=== PATIENT | male | born 2000 | race Caucasian/White ===

== ENCOUNTER 2019-01-07 21:33 | Emergency (ER) | payer BC ==
[~2019-01-07] VITALS: Ht 188 cm; Wt 141.1 kg
[2019-01-07] MEDS ORDERED: ASPIRIN 325 MG TABLET PO ONE (22:15)
[2019-01-07 22:48] LABS: BASO # 0.1 x10^3/uL (0.0-0.2); BASO % 1 % (0-3); EOS # 0.3 x10^3/uL (0.0-0.7); EOS % 2 % (0-3); HEMATOCRIT 48.9 % (39.0-53.0); HEMOGLOBIN 16.1 g/dL (13.0-17.5); LYMPH # 2.8 x10^3/uL (1.0-4.8); LYMPH % 23 % (24-48); MEAN CORPUSCULAR HEMOGLOBIN 28 pg (25-35); MEAN CORPUSCULAR HGB CONC 33 g/dL (31-37); MEAN CORPUSCULAR VOLUME 86 fL (79-100); MONO # 0.9 x10^3/uL (0.0-1.1); MONO % 7 % (0-9); NEUT # 8.2 x10^3uL (1.8-7.7); NEUT % 67 % (31-73); PLATELET COUNT 272 x10^3/uL (140-400); RED BLOOD COUNT 5.67 x10^6/uL (4.30-5.70); RED CELL DISTRIBUTION WIDTH 13.5 % (11.5-14.5); WHITE BLOOD COUNT 12.3 x10^3/uL (4.0-11.0)
[2019-01-07 22:57] LABS: CALCIUM 9.6 mg/dL (8.5-10.1); CREATININE 0.9 mg/dL (0.7-1.3); GFR 107.6; POTASSIUM 3.8 mmol/L (3.5-5.1)
[2019-01-07 23:22] LABS: BARBITURATES NEG (NEG); BENZODIAZEPINES NEG (NEG); CANNABINOIDS NEG (NEG); COCAINE NEG (NEG); METHADONE NEG (NEG); OPIATES NEG (NEG); PHENCYCLIDINE NEG (NEG)
[2019-01-07 23:23] LABS: AMPHETAMINE/METHAMPHETAMINE NEG (NEG)
--- NOTE | 2019-01-08 00:55 | PHYS DOC ---
Past Medical History Past Medical History: Other Additional Past Medical Histor: LAINA Past Surgical History: Other Additional Past Surgical Histo: NASAL SX Alcohol Use: Occasionally Drug Use: None Adult General Chief Complaint Chief Complaint: CHEST PAIN HPI HPI Patient is a 18 year old male who presents with 4/10 left sided chest pain intermittently since Thursday which is roughly 4 days ago. Patient denies anything exacerbating or relieving the pain. He is also complaining of pain to the left forearm. He states the pain begins mid forearm to the left hand. He is denying the pain radiating from the chest. Denies any shortness of breath. Denies any fever coughing or congestion. Denies anyone in his family dying before the age of 50 suddenly. Review of Systems Review of Systems Constitutional: Denies fever or chills [] Eyes: Denies change in visual acuity, redness, or eye pain [] HENT: Denies nasal congestion or sore throat [] Respiratory: Denies cough or shortness of breath [] Cardiovascular: Reports left sided chest pain GI: Denies abdominal pain, nausea, vomiting, bloody stools or diarrhea [] : Denies dysuria or hematuria [] Musculoskeletal: Denies back pain or joint pain [] Integument: Denies rash or skin lesions [] Neurologic: Denies headache, focal weakness or sensory changes [] All other systems were reviewed and found to be within normal limits, except as documented in this note. Current Medications Current Medications Current Medications Medications (Trade) Dose Ordered Sig/Glenna Start Time Stop Time Status Last Admin Dose Admin Aspirin (Giulia Aspirin) 325 mg 1X ONCE 01/07/19 22:15 01/07/19 22:16 DC 01/07/19 23:41 325 MG Allergies Allergies Allergies Coded Allergies Type Severity Reaction Last Updated Verified No Known Drug Allergies 01/07/19 No Physical Exam Physical Exam Constitutional: Well developed, well nourished, no acute distress, non-toxic appearance. [] HENT: Normocephalic, atraumatic, bilateral external ears normal, oropharynx moist, no oral exudates, nose normal. [] Eyes: PERRLA, EOMI, conjunctiva normal, no discharge. [] Neck: Normal range of motion, no tenderness, supple, no stridor. [] Cardiovascular:Heart rate regular rhythm, no murmur [] Lungs & Thorax: Bilateral breath sounds clear to auscultation [] Abdomen: Bowel sounds normal, soft, no tenderness, no masses, no pulsatile masses. [] Skin: Warm, dry, no erythema, no rash. [] Back: No tenderness, no CVA tenderness. [] Extremities: No tenderness, no cyanosis, no clubbing, ROM intact, no edema. [] Neurologic: Alert and oriented X 3, normal motor function, normal sensory function, no focal deficits noted. [] Psychologic: Affect normal, judgement normal, mood normal. [] Current Patient Data Vital Signs Vital Signs Date Time Temp Pulse Resp B/P (MAP) Pulse Ox O2 Delivery O2 Flow Rate FiO2 01/07/19 23:37 78 18 131/59 (83) 95 Room Air 01/07/19 21:40 97.5 97.5 Lab Values Laboratory Tests Test 01/07/19 22:35 01/07/19 23:03 White Blood Count 12.3 x10^3/uL (4.0-11.0) H Red Blood Count 5.67 x10^6/uL (4.30-5.70) Hemoglobin 16.1 g/dL (13.0-17.5) Hematocrit 48.9 % (39.0-53.0) Mean Corpuscular Volume 86 fL (79-100) Mean Corpuscular Hemoglobin 28 pg (25-35) Mean Corpuscular Hemoglobin Concent 33 g/dL (31-37) Red Cell Distribution Width 13.5 % (11.5-14.5) Platelet Count 272 x10^3/uL (140-400) Neutrophils (%) (Auto) 67 % (31-73) Lymphocytes (%) (Auto) 23 % (24-48) L Monocytes (%) (Auto) 7 % (0-9) Eosinophils (%) (Auto) 2 % (0-3) Basophils (%) (Auto) 1 % (0-3) Neutrophils # (Auto) 8.2 x10^3uL (1.8-7.7) H Lymphocytes # (Auto) 2.8 x10^3/uL (1.0-4.8) Monocytes # (Auto) 0.9 x10^3/uL (0.0-1.1) Eosinophils # (Auto) 0.3 x10^3/uL (0.0-0.7) Basophils # (Auto) 0.1 x10^3/uL (0.0-0.2) D-Dimer (Marysol) < 0.27 ug/mlFEU Sodium Level 143 mmol/L (136-145) Potassium Level 3.8 mmol/L (3.5-5.1) Chloride Level 102 mmol/L (98-107) Carbon Dioxide Level 31 mmol/L (21-32) Anion Gap 10 (6-14) Blood Urea Nitrogen 20 mg/dL (8-26) Creatinine 0.9 mg/dL (0.7-1.3) Estimated GFR (Cockcroft-Gault) 107.6 Glucose Level 106 mg/dL (70-99) H Calcium Level 9.6 mg/dL (8.5-10.1) Troponin I Quantitative < 0.017 ng/mL (0.000-0.055) TB-Lsg-A-Type Natriuretic Peptide 33 pg/mL (0-124) Urine Opiates Screen Neg (NEG) Urine Methadone Screen Neg (NEG) Urine Barbiturates Neg (NEG) Urine Phencyclidine Screen Neg (NEG) Urine Amphetamine/Methamphetamine Neg (NEG) Urine Benzodiazepines Screen Neg (NEG) Urine Cocaine Screen Neg (NEG) Urine Cannabinoids Screen Neg (NEG) Urine Ethyl Alcohol Neg (NEG) Laboratory Tests 01/07/19 22:35 Laboratory Tests 01/07/19 22:35 EKG EKG Interpreted by Dr. Cadet sinus rhythm heart rate 83no STEMI[] Radiology/Procedures Radiology/Procedures [] Course & Med Decision Making Course & Med Decision Making Pertinent Labs and Imaging studies reviewed. (See chart for details) This is a 18-year-old male patient presenting to the ED today with left-sided chest pain. Cardiac workup including D dimer is negative. Patient has a PCP for follow-up. Also provided alternative medicine practitioner. Follow-up next week. OTC pain relievers. Dragon Disclaimer Dragon Disclaimer This electronic medical record was generated, in whole or in part, using a voice recognition dictation system. Departure Departure Impression: Primary Impression: Chest pain Disposition: HOME, SELF-CARE Condition: STABLE Referrals: JEAN CLAUDE PABON APRN (PCP) Follow-up with your doctor next week MYRA LOCKHART MD follow up next week Patient Instructions: Chest Pain (Nonspecific), [id number] Additional Instructions: You were evaluated in the emergency room for chest pain. We could not find any acute source for your pain. Follow-up with alternative medicine practitioner doctor provided next week as well as a primary care doctor. Problem Qualifiers Primary Impression: Chest pain Chest pain type: unspecified Qualified Codes: R07.9 - Chest pain, unspecified NICCI NATH APRN Jan 08, 2019 00:55
[2019-01-08 01:07] VITALS: BP 127/61
--- NOTE | 2019-01-08 15:06 | EKG ---
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
--- NOTE | 2019-01-08 16:53 | RAD ---
AP chest 01/07/2018 CLINICAL INDICATION: Shortness of breath. COMPARISON: None. FINDINGS: Cardiac and mediastinal silhouettes are unremarkable. No pleural effusion, pneumothorax or focal consolidation. IMPRESSION: No acute cardiopulmonary abnormality. Electronically signed by: Skyler Crisostomo MD (01/08/2019 4:50 PM) [facility] [place]
== END 2019-01-08 01:35 | disposition home or self-care (01) ==
LOC: ER 21:33
DX: R07.89 Other chest pain (principal); M79.632 Pain in left forearm; Z79.82 Long term (current) use of aspirin
CPT/HCPCS: 36415; 71045; 80048; 80307; 83880; 84484; 85025; 85379; 93005; 99284-25

== ENCOUNTER 2019-01-20 22:18 | Emergency (ER) | payer BC ==
[~2019-01-20] VITALS: Ht 190.5 cm; Wt 135.2 kg
--- NOTE | 2019-01-20 22:48 | PHYS DOC ---
Past Medical History Past Medical History: Other Additional Past Medical Histor: LAINA Past Surgical History: Other Additional Past Surgical Histo: NASAL SX Alcohol Use: Occasionally Drug Use: None Adult General Chief Complaint Chief Complaint: CONSTIPATION HPI HPI Patient is 18 yo male who presents with Grandmother with chief complaint of 2 days of right sided abdominal pain. Patient reports he has been constipated for the past couple of days and "feels like his intestines are full". He reports his last BM was this morning at 0700 when he had a small, watery BM. He reports he has not tried to pass gas since this morning. He had 2 pills of exlax last night and another 2 pills this afternoon. He also had 2 ibuprofen and 2 excedrin for the pain this afternoon. Currently patient rates his pain as 4 or 5 out of 10. Magali states that she brought him to the ED because she was worried about appendicitis. Patient has PMH of Asberger's disease and panic attacks and has recently started zoloft, which is his only prescription medication. Patient denies cigarette or drug use. he reports occasional alcohol use. After grandma stepped out patient confirmed he is sexually active with one female partner. He reports having only vaginal sex, not wearing condoms, but denies dysuria or penile dc. He denies any abdominal surgeries, fever, nausea, or vomiting. Review of Systems Review of Systems Constitutional: Denies fever or chills [] Eyes: Denies change in visual acuity, redness, or eye pain [] HENT: Denies nasal congestion or sore throat [] Respiratory: Denies cough or shortness of breath [] Cardiovascular: No additional information not addressed in HPI [] GI: Admits abdominal pain, nausea, vomiting, bloody stools or diarrhea, admits to 2 days of constipation. : Denies dysuria or hematuria [] Musculoskeletal: Denies back pain or joint pain [] Integument: Denies rash or skin lesions [] Neurologic: Denies headache, focal weakness or sensory changes [] Endocrine: Denies polyuria or polydipsia [] All other systems were reviewed and found to be within normal limits, except as documented in this note. Current Medications Current Medications Current Medications Medications (Trade) Dose Ordered Sig/Glenna Start Time Stop Time Status Last Admin Dose Admin Acetaminophen (Tylenol) 1,000 mg 1X ONCE 01/20/19 23:15 01/20/19 23:16 DC 01/20/19 23:37 1,000 MG Lactulose (Lactulose) 20 gm 1X ONCE 01/20/19 23:15 01/20/19 23:16 DC 01/20/19 23:38 20 GM Magnesium Citrate (Citroma) 296 ml 1X ONCE 01/21/19 00:45 01/21/19 00:46 DC 01/21/19 00:45 296 ML Allergies Allergies Allergies Coded Allergies Type Severity Reaction Last Updated Verified No Known Drug Allergies 01/07/19 No Physical Exam Physical Exam Constitutional: Well developed, well nourished, obese, no acute distress, non- toxic appearance. [] HENT: Normocephalic, atraumatic Neck: Normal range of motion, Cardiovascular:Heart rate regular rhythm, no murmur [] Lungs & Thorax: Bilateral breath sounds clear to auscultation [] Abdomen: Bowel sounds normal, soft, no tenderness to moderate pressure, no masses, no alcazar's sign. No Rovsing sign. No tenderness over McBurney's point. Skin: Warm, dry, no erythema, no rash. [] Neurologic: Alert and oriented X 3, normal motor function, normal sensory function, no focal deficits noted. [] Psychologic: Affect normal, judgement normal, mood normal. [] Current Patient Data Vital Signs Vital Signs Date Time Temp Pulse Resp B/P (MAP) Pulse Ox O2 Delivery O2 Flow Rate FiO2 01/20/19 22:25 97.3 69 20 151/83 (105) 95 Room Air 97.3 Lab Values Laboratory Tests Test 01/21/19 00:01 01/21/19 00:20 White Blood Count 9.9 x10^3/uL (4.0-11.0) Red Blood Count 5.33 x10^6/uL (4.30-5.70) Hemoglobin 15.1 g/dL (13.0-17.5) Hematocrit 46.0 % (39.0-53.0) Mean Corpuscular Volume 86 fL (79-100) Mean Corpuscular Hemoglobin 28 pg (25-35) Mean Corpuscular Hemoglobin Concent 33 g/dL (31-37) Red Cell Distribution Width 13.5 % (11.5-14.5) Platelet Count 293 x10^3/uL (140-400) Neutrophils (%) (Auto) 69 % (31-73) Lymphocytes (%) (Auto) 18 % (24-48) L Monocytes (%) (Auto) 11 % (0-9) H Eosinophils (%) (Auto) 2 % (0-3) Basophils (%) (Auto) 1 % (0-3) Neutrophils # (Auto) 6.8 x10^3uL (1.8-7.7) Lymphocytes # (Auto) 1.8 x10^3/uL (1.0-4.8) Monocytes # (Auto) 1.0 x10^3/uL (0.0-1.1) Eosinophils # (Auto) 0.2 x10^3/uL (0.0-0.7) Basophils # (Auto) 0.1 x10^3/uL (0.0-0.2) Sodium Level 141 mmol/L (136-145) Potassium Level 3.7 mmol/L (3.5-5.1) Chloride Level 103 mmol/L (98-107) Carbon Dioxide Level 29 mmol/L (21-32) Anion Gap 9 (6-14) Blood Urea Nitrogen 16 mg/dL (8-26) Creatinine 0.9 mg/dL (0.7-1.3) Estimated GFR (Cockcroft-Gault) 107.6 BUN/Creatinine Ratio 18 (6-20) Glucose Level 113 mg/dL (70-99) H Calcium Level 9.7 mg/dL (8.5-10.1) Total Bilirubin 0.3 mg/dL (0.2-1.0) Aspartate Amino Transferase (AST) 20 U/L (15-37) Alanine Aminotransferase (ALT) 34 U/L (16-63) Alkaline Phosphatase 85 U/L (46-116) Total Protein 8.0 g/dL (6.4-8.2) Albumin 4.1 g/dL (3.4-5.0) Albumin/Globulin Ratio 1.1 (1.0-1.7) Laboratory Tests 01/21/19 00:01 Laboratory Tests 01/21/19 00:20 EKG EKG [] Radiology/Procedures Radiology/Procedures [] Course & Med Decision Making Course & Med Decision Making Patient is 18 yo male who presents with grandomther with complaint of 2 days of abdominal pain and constipation. Grandmother reports she is worried about appendicitis in the patient. Patient reports his last bowel movement was this morning around 0700 but has not had a "normal" BM for 2 days. On physical exam he is resting comfortably, vitals WNL, with soft, nontender, nonperitoneal abdomen. Grandmother reports that patient has Asberger's disease which causes him to have a high pain tolerance. Discussed with grandma that likely patient's symptoms are d/t constipation, and that in this case the benefits of CT likely do not outweigh the radiation present with CT AT THIS TIME. CBC WNL. CMP reveals. Patient prescribed lactulose for constipation relief and tylenol for pain relief. Advised patient and grandmother that likely his symptoms are d/t constipation but that patient should return to ED if nausea, vomiting, fever, or abdominal pain increase IN NEXT 12-24 HOURS. Advised patient to continue EXLAX, TAKE LACTULOSE and to increase water intake. Patient and grandmother voiced understanding and agreement with the plan. Dragon Disclaimer Dragon Disclaimer This electronic medical record was generated, in whole or in part, using a voice recognition dictation system. Departure Departure Impression: Primary Impression: Constipation Disposition: 01 HOME, SELF-CARE Condition: STABLE Referrals: JEAN CLAUDE PABON APRN (PCP) Scripts Lactulose (LACTULOSE) 20 Gm/30 Ml Solution 20 GM PO BID, #1 [facility] [place] Prov: GAGE ROSARIO MD 01/20/19 GAGE ROSARIO MD Jan 20, 2019 22:48
[2019-01-20] MEDS ORDERED: ACETAMINOPHEN 500 MG TABLET PO ONE (23:15)
[2019-01-20] MEDS ORDERED: LACTULOSE 20 GM/30 ML SOLUTION. PO ONE (23:15)
[2019-01-20] MEDS ORDERED: LACT20SO PO (23:25)
[2019-01-21 00:17] LABS: BASO # 0.1 x10^3/uL (0.0-0.2); BASO % 1 % (0-3); EOS # 0.2 x10^3/uL (0.0-0.7); EOS % 2 % (0-3); HEMOGLOBIN 15.1 g/dL (13.0-17.5); LYMPH # 1.8 x10^3/uL (1.0-4.8); LYMPH % 18 % (24-48); MEAN CORPUSCULAR HEMOGLOBIN 28 pg (25-35); MEAN CORPUSCULAR HGB CONC 33 g/dL (31-37); MEAN CORPUSCULAR VOLUME 86 fL (79-100); MONO % 11 % (0-9); NEUT # 6.8 x10^3uL (1.8-7.7); NEUT % 69 % (31-73); PLATELET COUNT 293 x10^3/uL (140-400); RED BLOOD COUNT 5.33 x10^6/uL (4.30-5.70); RED CELL DISTRIBUTION WIDTH 13.5 % (11.5-14.5); WHITE BLOOD COUNT 9.9 x10^3/uL (4.0-11.0)
[2019-01-21] MEDS ORDERED: MAGNESIUM CITRATE 296 ML SOLUTION. PO ONE (00:45)
[2019-01-21 00:54] LABS: CALCIUM 9.7 mg/dL (8.5-10.1); CREATININE 0.9 mg/dL (0.7-1.3); GFR 107.6; POTASSIUM 3.7 mmol/L (3.5-5.1)
[2019-01-21 01:00] VITALS: BP 137/63
[2019-01-21 01:00] LABS: ALBUMIN 4.1 g/dL (3.4-5.0); ALBUMIN/GLOBULIN RATIO 1.1 (1.0-1.7); TOTAL BILIRUBIN 0.3 mg/dL (0.2-1.0)
== END 2019-01-21 01:25 | disposition home or self-care (01) ==
LOC: ER 22:18
DX: K59.00 Constipation, unspecified (principal); R10.9 Unspecified abdominal pain; R11.2 Nausea with vomiting, unspecified; R19.7 Diarrhea, unspecified; K92.1 Melena
CPT/HCPCS: 36415; 80053; 85025; 99284

== ENCOUNTER → 2019-06-29 | Day surgery (SDC) | payer BC ==
[~2019-06-29] MED LIST: IV RINGERS,LACTATED 1000ML 1,000 ML IV SCH; LACT20SO PO; PROPOFOL 40 ML IV ONE; SERT50TA PO
[2019-06-29 09:59] VITALS: BP 135/81
--- NOTE | 2019-06-30 14:06 | PATHOLOGY ---
[facility] Accession Number: [id number] . 01 Material submitted: . PART A: duodenum - DUODENAL BX'S PART B: colon - RANDOM COLON BX'S . 01 Clinical history: . Abdominal pain, diarrhea A: R/O celiac . 02 Diagnosis: A. Duodenal biopsies: - No significant pathologic abnormalities. . B. Colonic mucosa, random colon biopsies: - No significant pathologic abnormalities with few hyperplastic mucosal-associated lymphoid aggregates. . (JPM:mml; 06/30/2019) [facility]/06/30/2019 . 02 Comment: Sections of the duodenal biopsy reveal segments of duodenal and small intestine mucosa with focally prominent Anthony's glands. Where best oriented, the mucosal villi show no sprue-like changes or significant inflammatory changes. . Sections of the random colon biopsy reveal multiple segments of colonic mucosa containing a few hyperplastic mucosal-associated lymphoid aggregates. There is no evidence of a chronic destructive colitis, lymphocytic colitis, or collagenous colitis. . (JPM:mml; 06/30/2019) . 02 Electronically signed: . Ismael Babb MD, Pathologist NPI- [id number] . 01 Gross description: . A. The specimen is received in formalin, labeled "Jerry Molly, duodenal biopsies, R/O celiac". Received are eight segments of pale rehman soft tissue ranging in size from 0.2 to 0.4 cm in maximum dimensions. The specimen is submitted entirely in cassette A1. . B. The specimen is received in formalin, labeled "Jerry Molly, random colon biopsies". Received are multiple (greater than 10) segments of pale rehman soft tissue ranging in size from 0.2 to 0.6 cm in maximum dimensions. The specimen is submitted entirely in cassette B1. (CAA; 06/29/2019) QAC/QAC . 02 Pathologist provided ICD-10: R10.9, R19.7 . 02 CPT . 766486, 974608 Specimen Comment: A courtesy copy of this report has been sent to Specimen Comment: [phone], . Specimen Comment: Report sent to / DR PABON Performed at: 01 [facility] [address], [place] [id number] MD Peter Self MD Phone: [phone] [facility]formed at: 02 [facility] [address] [place], [place] [id number] MD Ismael Babb MD Phone: [phone]
== END ==
LOC: ENDOS 07:49
PROVIDERS: ATTEND Internal Medicine Gastroenterology
DX: K64.0 First degree hemorrhoids (principal); K31.89 Other diseases of stomach and duodenum; K63.89 Other specified diseases of intestine; F41.9 Anxiety disorder, unspecified; J45.909 Unspecified asthma, uncomplicated; F15.90 Other stimulant use, unspecified, uncomplicated; Z72.89 Other problems related to lifestyle; Z91.040 Latex allergy status; Z87.891 Personal history of nicotine dependence
CPT/HCPCS: 43239; 45380; 88305; J2704; 45378

== ENCOUNTER 2019-10-17 19:35 | Emergency (ER) | payer BC ==
[~2019-10-17] VITALS: Ht 190.5 cm; Wt 135.2 kg
[~2019-10-17 19:35] MED LIST changes: -IV RINGERS,LACTATED 1000ML 1,000 ML IV SCH; -PROPOFOL 40 ML IV ONE
--- NOTE | 2019-10-17 21:04 | PHYS DOC ---
Past Medical History Past Medical History: Other Additional Past Medical Histor: LAINA Past Surgical History: Other Additional Past Surgical Histo: NASAL SX Alcohol Use: Occasionally Drug Use: None Adult General Chief Complaint Chief Complaint: SORE THROAT HPI HPI Patient is a 19 year old male who presents to the emergency department with complaints of a sensation of a piece of care it being stuck in the left side of his throat. Patient states that he was seen by his primary care doctor 2 weeks ago for the same problem. He denies having any difficulty swallowing, or inability to eat or drink things without difficulty. He denies any shortness of breath, chest pain, wheezing, nausea, vomiting, diarrhea, or stridor. He currently rates pain a 3 out of 10 on the pain scale he denies any alleviating factors, the pain increases with swallowing. All other ROS is neg unless otherwise noted in HPI. Review of Systems Review of Systems See Above Allergies Allergies Allergies Coded Allergies Type Severity Reaction Last Updated Verified latex Allergy Intermediate 06/29/19 Yes Physical Exam Physical Exam See Above Constitutional: Well developed, well nourished, no acute distress, non-toxic appearance. [] HENT: Normocephalic, atraumatic, bilateral external ears normal, oropharynx moist, no oral exudates, nose normal. [] Eyes: PERRLA, EOMI, conjunctiva normal, no discharge. [] Neck: Normal range of motion, no tenderness, supple, no stridor. [] Cardiovascular:Heart rate regular rhythm, no murmur [] Lungs & Thorax: Bilateral breath sounds clear to auscultation [] Skin: Warm, dry, no erythema Extremities: No cyanosis, ROM intact Neurologic: Alert and oriented X 3, no focal deficits noted. [] Psychologic: Affect normal, judgement normal, mood normal. [] Current Patient Data Vital Signs Vital Signs Date Time Temp Pulse Resp B/P (MAP) Pulse Ox O2 Delivery O2 Flow Rate FiO2 10/17/19 20:08 97.7 97 20 159/115 (130) 98 Room Air 97.7 EKG EKG [] Radiology/Procedures Radiology/Procedures [] Course & Med Decision Making Course & Med Decision Making Pertinent Labs and Imaging studies reviewed. (See chart for details) Patient was a 19-year-old male who presented to the emergency room with complaints of feeling like there was a piece of care it stuck in his throat for 2 weeks. He denied any difficulty swallowing foods or fluids, shortness of breath, wheezing, or stridor. He was instructed to follow-up with his primary care doctor or ENT specialist for further evaluation of the condition. He was instructed to return to the emergency room if he was unable to swallow foods or fluids, had difficulty breathing, or stridor developed. This plan of care was also discussed with Dr. Berg prior to patient discharge who was in agreement that an acute medical condition was not present. The patient verbalized an understanding of home care, follow-up, and return to ED instructions and was in agreement with the plan of care. [] Dragon Disclaimer Dragon Disclaimer This electronic medical record was generated, in whole or in part, using a voice recognition dictation system. Departure Departure Impression: Primary Impression: Throat discomfort Disposition: 01 HOME, SELF-CARE Condition: STABLE Referrals: JEAN CLAUDE PABON APRN (PCP) Patient Instructions: Dysphagia Additional Instructions: Follow-up with your primary care doctor or an formal wear rental clerk for further evaluation of the abnormal sensation with swallowing. Return to the ER if you are unable to swallow foods, having difficulty breathing, or other wors ening problems. YANCY HAWKINS APRN Oct 17, 2019 21:04
[2019-10-17 21:17] VITALS: BP 152/98
== END 2019-10-17 21:19 | disposition home or self-care (01) ==
LOC: ER 19:35
DX: J39.2 Other diseases of pharynx (principal); F84.5 Asperger's syndrome; Z91.040 Latex allergy status; Z98.890 Other specified postprocedural states
CPT/HCPCS: 99281

== ENCOUNTER 2019-11-29 10:37 | Emergency (ER) | payer BC ==
[2019-11-29 10:53] VITALS: BP 168/80
[2019-11-29] MEDS ORDERED: LACT20SO PO ×2 (11:04→11:11)
--- NOTE | 2019-11-29 11:23 | PHYS DOC ---
Past Medical History Past Medical History: Other Additional Past Medical Histor: LAINA Past Surgical History: Other Additional Past Surgical Histo: NASAL SX Alcohol Use: Occasionally Drug Use: None Adult General Chief Complaint Chief Complaint: CONSTIPATION HPI HPI Patient is a 19 year old M P/W CC OF CONSTIPATION, Onset 3 days ago associated with 1 episode of emesis this morning. He has had a cough and runny nose last few days as well. He says he has chronic constipation he takes laxatives Ex-Lax for that but hasn't helped. He did have some mild abdominal discomfort earlier but is not really having at this time. He is passing flatus. Have a hard small bowel movement yesterday the last was 3 days ago no previous abdominal surgeries he says he has a very poor diet he doesn't take very many vegetables he doesn't really exercise. Allergies Allergies Allergies Coded Allergies Type Severity Reaction Last Updated Verified latex Allergy Intermediate 06/29/19 Yes Physical Exam Physical Exam Constitutional: Well developed, well nourished, no acute distress, non-toxic appearance. [] HENT: Normocephalic, atraumatic, bilateral external ears normal, oropharynx moist, no oral exudates, nose normal. [] Eyes: PERRLA, EOMI, conjunctiva normal, no discharge. [] Neck: Normal range of motion, no tenderness, supple, no stridor. [] Cardiovascular:Heart rate regular rhythm, no murmur [] Lungs & Thorax: Bilateral breath sounds clear to auscultation [] Abdomen: Bowel sounds normal, soft, no tenderness, no masses, no pulsatile masses. [] Skin: Warm, dry, no erythema, no rash. [] Extremities: No tenderness, no cyanosis, no clubbing, ROM intact, no edema. [] Neurologic: Alert and oriented X 3, normal motor function, normal sensory function, no focal deficits noted. [] Psychologic: Affect normal, judgement normal, mood normal. [] Current Patient Data Vital Signs See nurse's note for complete vitals I did recommend follow-up regarding mild elevation of blood pressure to the 160s heart rate was 105 on my evaluation EKG EKG [] Radiology/Procedures Radiology/Procedures [] Course & Med Decision Making Course & Med Decision Making Pertinent Labs and Imaging studies reviewed. (See chart for details) []Well-appearing 19-year-old male presenting with constipation 3 days no previous surgical history abdominal examination was benign bowel sounds are present Patient is able still eating and drinking tells me I don't see any reason for any advanced imaging or further workup trial of lactulose return precautions discussed. Dragon Disclaimer Dragon Disclaimer This electronic medical record was generated, in whole or in part, using a voice recognition dictation system. Departure Departure Impression: Primary Impression: Constipation Disposition: 01 HOME, SELF-CARE Condition: STABLE Referrals: JEAN CLAUDE PABON APRN (PCP) Patient Instructions: Constipation, Adult Scripts Lactulose (LACTULOSE) 20 Gm/30 Ml Solution 20 GM PO BID PRN for CONSTIPATION, #1 BOT Prov: GAGE ROSARIO MD 11/29/19 Lactulose (LACTULOSE) 20 Gm/30 Ml Solution 20 GM PO BID PRN for CONSTIPATION, #1 BOTTLE Prov: GAGE ROSARIO MD 11/29/19 GAGE ROSARIO MD Nov 29, 2019 11:23
== END 2019-11-29 11:22 | disposition home or self-care (01) ==
LOC: ER 10:37
DX: K59.00 Constipation, unspecified (principal); R11.10 Vomiting, unspecified; F84.5 Asperger's syndrome; Z98.890 Other specified postprocedural states; Z91.040 Latex allergy status
CPT/HCPCS: 99283

== ENCOUNTER 2020-06-12 23:05 | Inpatient (IN) | payer BC ==
[~2020-06-12] VITALS: Ht 190.5 cm; Wt 119.6 kg
--- NOTE | 2020-06-12 23:55 | PHYS DOC ---
Past Medical History Past Medical History: Other Additional Past Medical Histor: LAINA Past Surgical History: Other Additional Past Surgical Histo: NASAL SX Smoking Status: Never Smoker Alcohol Use: Occasionally Drug Use: None General Adult EDM: Chief Complaint: CHEST PAIN HPI: HPI: Patient is a 19-year-old otherwise healthy male who presents from work today secondary to chest pain. States he has had chest pain all day long today he also felt like his heart rate was elevated. He denies any nausea vomiting diaphoresis shortness of breath or dyspnea on exertion. He states they checked his blood pressure at work and it was elevated. Currently he states he is symptom-free but he states he is also had some left arm numbness recently. He also states that the folks at work gave him an aspirin today. [] Review of Systems: Review of Systems: Constitutional: Denies fever or chills. [] Eyes: Denies change in visual acuity. [] HENT: Denies nasal congestion or sore throat. [] Respiratory: Denies cough or shortness of breath. [] Cardiovascular: Per HPI [] GI: Denies abdominal pain, nausea, vomiting, bloody stools or diarrhea. [] : Denies dysuria. [] Musculoskeletal: Denies back pain or joint pain. [] Integument: Denies rash. [] Neurologic: Denies headache, focal weakness or sensory changes. [] Endocrine: Denies polyuria or polydipsia. [] Lymphatic: Denies swollen glands. [] Psychiatric: Reports anxiety [] Heart Score: HEART Score for Chest Pain: HEART Score for Chest Pain Response (Comments) Value History Slighlty/Non-Suspicious 0 ECG Normal 0 Age < 45 0 Risk Factors No Risk Factors 0 Troponin < Normal Limit 0 Total 0 Risk Factors: Risk Factors: DM, Current or recent (<one month) smoker, HTN, HLP, family history of CAD, obesity. Risk Scores: Score 0 - 3: 2.5% MACE over next 6 weeks - Discharge Home Score 4 - 6: 20.3% MACE over next 6 weeks - Admit for Clinical Observation Score 7 - 10: 72.7% MACE over next 6 weeks - Early Invasive Strategies Allergies: Allergies: Allergies Coded Allergies Type Severity Reaction Last Updated Verified latex Allergy Intermediate 06/29/19 Yes Physical Exam: PE: Constitutional: Well developed, well nourished, no acute distress, non-toxic appearance. [] HENT: Normocephalic, atraumatic, bilateral external ears normal, oropharynx moist, no oral exudates, nose normal. [] Eyes: PERRLA, EOMI, conjunctiva normal, no discharge. [] Neck: Normal range of motion, no tenderness, supple, no stridor. [] Cardiovascular:Heart rate regular rhythm, no murmur [] Lungs & Thorax: Bilateral breath sounds clear to auscultation [] Abdomen: Bowel sounds normal, soft, no tenderness, no masses, no pulsatile masses. [] Skin: Warm, dry, no erythema, no rash. [] Back: No tenderness, no CVA tenderness. [] Extremities: No tenderness, no cyanosis, no clubbing, ROM intact, no edema. [] Neurologic: Alert and oriented X 3, normal motor function, normal sensory function, no focal deficits noted. [] Psychologic: Anxious [] EKG: EKG: [EKG: Normal sinus rhythm rate of [address]-T changes Radiology/Procedures: Radiology/Procedures: [REASON: chest pain PROCEDURE: CHEST AP ONLY Chest AP portable at 12:04 AM: Reason for examination: Chest pain. Comparison is made to previous study dated 01/07/2019. The heart size is normal. Mediastinum is unremarkable. Lung bryan are clear. No acute bony abnormalities are seen. Impression: No acute cardiopulmonary disease.] Course & Med Decision Making: Course & Med Decision Making Pertinent Labs and Imaging studies reviewed. (See chart for details) [ED course: Evaluation reveals a 19-year-old male with what sounds like fairly typical sounding chest pain with symptoms radiating to his left arm. During his stay here he had no significant pain. Interestingly, his troponin was significantly elevated. I am unsure what would have caused his troponin to be that elevated given his atypical sounding symptoms. We will go ahead and put him in and let cardiology weigh in in the morning. Norberto Disclaimer: Norberto Disclaimer: This electronic medical record was generated, in whole or in part, using a voice recognition dictation system. Departure Departure Impression: Primary Impression: Chest pain Qualified Codes: R07.9 - Chest pain, unspecified Disposition: 01 HOME, SELF-CARE Condition: STABLE Referrals: JEAN CLAUDE PABON APRN (PCP) Justicifation of Admission Dx: Justifications for Admission: Justification of Admission Dx: Yes Angina: New-Onset DIMPLE RODRIGUEZ DO Jun 12, 2020 23:55
[2020-06-13 00:33] LABS: BASO # 0.1 x10^3/uL (0.0-0.2); BASO % 1 % (0-3); EOS # 0.2 x10^3/uL (0.0-0.7); EOS % 2 % (0-3); HEMATOCRIT 41.7 % (39.0-53.0); HEMOGLOBIN 14.4 g/dL (13.0-17.5); LYMPH % 23 % (24-48); MEAN CORPUSCULAR HEMOGLOBIN 29 pg (25-35); MEAN CORPUSCULAR HGB CONC 35 g/dL (31-37); MEAN CORPUSCULAR VOLUME 85 fL (79-100); MONO # 0.9 x10^3/uL (0.0-1.1); MONO % 10 % (0-9); NEUT # 5.5 x10^3/uL (1.8-7.7); NEUT % 64 % (31-73); PLATELET COUNT 306 x10^3/uL (140-400); RED BLOOD COUNT 4.92 x10^6/uL (4.30-5.70); RED CELL DISTRIBUTION WIDTH 13.4 % (11.5-14.5); WHITE BLOOD COUNT 8.6 x10^3/uL (4.0-11.0)
--- NOTE | 2020-06-13 00:34 | RAD ---
Chest AP portable at 12:04 AM: Reason for examination: Chest pain. Comparison is made to previous study dated 01/07/2019. The heart size is normal. Mediastinum is unremarkable. Lung bryan are clear. No acute bony abnormalities are seen. Impression: No acute cardiopulmonary disease. Electronically signed by: Abena Aguilar MD (06/13/2020 12:30 AM) [id number]
[2020-06-13 01:19] LABS: GFR 94.3; POTASSIUM 3.6 mmol/L (3.5-5.1)
[2020-06-13 01:25] LABS: ALBUMIN 3.9 g/dL (3.4-5.0); ALBUMIN/GLOBULIN RATIO 1.1 (1.0-1.7); TOTAL BILIRUBIN 0.7 mg/dL (0.2-1.0); TOTAL PROTEIN 7.5 g/dL (6.4-8.2)
[2020-06-13] MEDS ORDERED: fentaNYL PF VIAL 100 MCG/2 ML VIAL IV PRN (02:30)
[2020-06-13] MEDS ORDERED: ONDANSETRON PF 4 MG/2 ML VIAL. IV PRN (02:30)
[2020-06-13 03:00] VITALS: BP 141/77
--- NOTE | 2020-06-13 03:22 | EKG ---
[facility] [address] [place] [address] Test Date: 2020-06-12 Test Time: 23:13:20 Pat Name: ARINA DELVALLE Department: Room: Gender: M [employer]: : 2000 Requested By: DIMPLE RODRIGUEZ Order Number: [id number] Reading MD: Measurements Intervals Ledbetter Rate: 60 P: 30 PA: 124 QRS: 54 QRSD: 98 T: 30 QT: 408 QTc: 412 Interpretive Statements SINUS RHYTHM QRS(T) CONTOUR ABNORMALITY CONSIDER ANTEROLATERAL MYOCARDIAL DAMAGE POSSIBLY ABNORMAL ECG RI6.01 No previous ECG available for comparison
--- NOTE | 2020-06-13 03:30 | NUR ---
The patient, ARINA DELVALLE, 19 y/o, M admitted by FAHEEM KINNEY MD, was given written information regarding hospital policies, unit procedures and contact persons. Patient was admitted to the room via wheelchair assisted this RN. Valuables were checked and noted. Patient is currently laying in bed watching TV. Patient denies pain at this time. Patient denies any needs at this time. This RN will continue to monitor the patient at this time.
[2020-06-13 07:00] VITALS: BP 139/71
[2020-06-13 09:32] LABS: CHOLESTEROL/HDL RATIO 3.9
--- NOTE | 2020-06-13 10:00 | PDOC2 ---
CARDIAC CONSULT DATE OF CONSULT Date of Consult DATE: 06/13/20 TIME: 09:55 REASON FOR CONSULT Reason for Consult: Elevated troponin REFERRING PHYSICIAN Referring Physician: Dr. Contreras SOURCE Source: Chart review, Patient HISTORY OF PRESENT ILLNESS HISTORY OF PRESENT ILLNESS This is a 19 yo male who presented secondary to chest pain. Troponin noted to be elevated, which prompted this consult. Patient reports pain started following lunch yesterday afternoon. Located in his upper central chest. Describes as stabbing pain. Was intermittent. Took at nap yesterday afternoon prior to work. Went to work and pain seemed to worsen. Had tingling in left had. [place] dizzy. Co-worker encouraged him to go to the ED for further evaluation and treatment. No specific worsening factors. Has been seen in ED in past for similar pain and was told it was related to anxiety. Patient does report feeling anxious when pain developed. PAST MEDICAL HISTORY Pulmonary: Asthma Psych: Other (Aspergers) Endocrine: Other (obesity) PAST SURGICAL HISTORY Past Surgical History: No pertinent history FAMILY HISTORY Family History: Other (noncontributory ) SOCIAL HISTORY Smoke: No ALCOHOL: occassional Drugs: None Lives: with Family ALLERGIES ALLERGIES: Coded Allergies: Iodinated Contrast Media (Verified Allergy, Severe, Swelling, 06/13/20) swelling of eyes, hives, itching latex (Verified Allergy, Intermediate, 06/29/19) ROS Review of System 14 point ROS conducted with pertinent positives noted above in HPI PHYSICAL EXAM General: Alert, Oriented X3, Cooperative, No acute distress HEENT: Atraumatic, Mucous membr. moist/pink Lungs: Clear to auscultation Heart: Regular rate, Normal S1, Normal S2, No murmurs Abdomen: Soft, No tenderness Extremities: No edema, Normal pulses Skin: No significant lesion Neuro: Normal speech, Sensation intact Psych/Mental Status: Mental status NL, Mood NL MUSCULOSKELETAL: No joint tenderness VITALS/I&O VITALS/I&O: Vital Signs Date Time Temp Pulse Resp B/P (MAP) Pulse Ox O2 Delivery O2 Flow Rate FiO2 06/13/20 07:00 97.5 72 18 139/71 (93) 97 Room Air 97.5 I & O 06/12/20 06/12/20 06/13/20 15:00 23:00 07:00 Output Total 0 ml Balance 0 ml LABS Lab: Laboratory Tests Test 06/13/20 00:25 06/13/20 01:05 06/13/20 05:30 06/13/20 08:11 White Blood Count 8.6 x10^3/uL (4.0-11.0) Red Blood Count 4.92 x10^6/uL (4.30-5.70) Hemoglobin 14.4 g/dL (13.0-17.5) Hematocrit 41.7 % (39.0-53.0) Mean Corpuscular Volume 85 fL (79-100) Mean Corpuscular Hemoglobin 29 pg (25-35) Mean Corpuscular Hemoglobin Concent 35 g/dL (31-37) Red Cell Distribution Width 13.4 % (11.5-14.5) Platelet Count 306 x10^3/uL (140-400) Neutrophils (%) (Auto) 64 % (31-73) Lymphocytes (%) (Auto) 23 % (24-48) L Monocytes (%) (Auto) 10 % (0-9) H Eosinophils (%) (Auto) 2 % (0-3) Basophils (%) (Auto) 1 % (0-3) Neutrophils # (Auto) 5.5 x10^3/uL (1.8-7.7) Lymphocytes # (Auto) 2.0 x10^3/uL (1.0-4.8) Monocytes # (Auto) 0.9 x10^3/uL (0.0-1.1) Eosinophils # (Auto) 0.2 x10^3/uL (0.0-0.7) Basophils # (Auto) 0.1 x10^3/uL (0.0-0.2) Sodium Level 142 mmol/L (136-145) Potassium Level 3.6 mmol/L (3.5-5.1) Chloride Level 105 mmol/L (98-107) Carbon Dioxide Level 27 mmol/L (21-32) Anion Gap 10 (6-14) Blood Urea Nitrogen 11 mg/dL (8-26) Creatinine 1.0 mg/dL (0.7-1.3) Estimated GFR (Cockcroft-Gault) 94.3 BUN/Creatinine Ratio 11 (6-20) Glucose Level 90 mg/dL (70-99) Calcium Level 9.0 mg/dL (8.5-10.1) Total Bilirubin 0.7 mg/dL (0.2-1.0) Aspartate Amino Transferase (AST) 15 U/L (15-37) Alanine Aminotransferase (ALT) 23 U/L (16-63) Alkaline Phosphatase 63 U/L (46-116) Troponin I Quantitative 0.063 ng/mL (0.000-0.055) 0.065 ng/mL (0.000-0.055) 0.058 ng/mL (0.000-0.055) Total Protein 7.5 g/dL (6.4-8.2) Albumin 3.9 g/dL (3.4-5.0) Albumin/Globulin Ratio 1.1 (1.0-1.7) Triglycerides Level 86 mg/dL (0-150) Cholesterol Level 154 mg/dL (0-200) LDL Cholesterol, Calculated 98 mg/dL (0-100) VLDL Cholesterol, Calculated 17 mg/dL (0-40) Non-HDL Cholesterol Calculated 115 mg/dL (0-129) HDL Cholesterol 39 mg/dL (40-60) L Cholesterol/HDL Ratio 3.9 Laboratory Tests 06/13/20 00:25 Laboratory Tests 06/13/20 01:05 ASSESSMENT/PLAN ASSESSMENT/PLAN 1. Chest pain, atypical. ? GI in nature 2. Mild troponin elevation; peak 0.063. Most probably type II, demand ischemia 3. Asthma Recommendations Echo to assess LV systolic function UDS Lipids CK D-dimer Further pending above. NIKKI SORTO APRN Jun 13, 2020 10:00
--- NOTE | 2020-06-13 10:36 | NUR ---
SS following for discharge planning. SS reviewed pt chart and discussed with pt RN. Pt is from home and is currently on room air. Pt having cardiac work up. SS will continue to follow for discharge planning.
[2020-06-13 10:40] LABS: BILIRUBIN,URINE NEGATIVE (NEG); CLARITY,URINE CLEAR; COLOR,URINE YELLOW; NITRITE,URINE NEGATIVE (NEG); PROTEIN,URINE NEGATIVE (NEG-TRACE); UROBILINOGEN,URINE 0.2 mg/dL (0.2 mg/dL)
[2020-06-13 10:43] LABS: BARBITURATES NEG (NEG); BENZODIAZEPINES NEG (NEG); CANNABINOIDS NEG (NEG); COCAINE NEG (NEG); METHADONE NEG (NEG); OPIATES NEG (NEG); PHENCYCLIDINE NEG (NEG)
[2020-06-13 10:45] LABS: AMPHETAMINE/METHAMPHETAMINE NEG (NEG)
[2020-06-13 10:56] LABS: BACTERIA,URINE 0 /HPF (0-FEW); RBC,URINE 0 /HPF (0-2); SQUAMOUS EPITHELIAL CELL,UR FEW /LPF; WBC,URINE 0 /HPF (0-4)
[2020-06-13 10:59] VITALS: BP 133/82
[2020-06-13] MEDS: SERTRALINE 50 MG TABLET. PO SCH (12:15)
[2020-06-13] MEDS: PANTOPRAZOLE 40 MG TABLET.DR. PO SCH (12:15)
--- NOTE | 2020-06-13 13:58 | PDOC1 ---
History and Physical Date of Admission: Date of Admission DATE: 06/13/20 TIME: 13:51 Chief Complaint: Chief Complain: Chest pain History of Present Illness: HPI: Patient is a 19-year-old male with history of GERD who presents to the ED with history of chest pain that started last night at 11 PM. He describes the pain as 4-5 out of 10, sharp, parasternal. Pain would last less than 5 minutes disap pear. There are no exacerbating or alleviating factors. Pain does not radiate to arms or shoulders. Patient does endorse numbness of his left arm. 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 He denies any nausea vomiting, diaphoresis, shortness of breath, abdominal pain, or dysuria. Patient does describe heartburn symptoms occasionally in which she does take omeprazole as needed. Denies feelings of odynophagia or choking or drooling episodes. Patient does endorse a 20 pound weight loss in the last 2 months, however he states that this is intentional as he is trying to control his weight by eating appropriately Past Medical/Surgical History: PMH/PSH: Past Medical History: Anxiety, GERD, ASBERGERS Past Surgical History: None Allergies: Allergies: Coded Allergies: Iodinated Contrast Media (Verified Allergy, Severe, Swelling, 06/13/20) swelling of eyes, hives, itching latex (Verified Allergy, Intermediate, 06/29/19) Family History: Family History: Reviewed and none reported Social History: Social History: Smoking Status: Never Smoker Alcohol Use: Occasionally Drug Use: None Current Medications: Current Medications Current Medications Ondansetron HCl (Zofran) 4 mg PRN Q8HRS PRN IV NAUSEA/VOMITING; Start 06/13/20 at 02:30; Stop 06/14/20 at 02:29 Fentanyl Citrate (Fentanyl 2ml Vial) 50 mcg PRN Q1HR PRN IV PAIN; Start 06/13/20 at 02:30; Stop 06/14/20 at 02:29 Sertraline HCl (Zoloft) 50 mg DAILY PO Last administered on 06/13/20at 12:15; Start 06/13/20 at 12:00 Pantoprazole Sodium (Protonix) 40 mg DAILYAC PO Last administered on 06/13/20at 12:15; Start 06/13/20 at 12:00 Active Scripts Active Lactulose 20 Gm/30 Ml Solution 20 Gm PO BID PRN Lactulose 20 Gm/30 Ml Solution 20 Gm PO BID PRN Reported Zoloft (Sertraline Hcl) 50 Mg Tablet 50 Mg PO DAILY ROS: Review of Systems Review of System REVIEW OF SYSTEMS: GENERAL: Denies weakness SKIN: No bruising, hair changes or rashes. EYES: No blurred, double or loss of vision. NOSE AND THROAT: No history of nosebleeds, hoarseness or sore throat. HEART: No history of palpitations, chest pain or shortness of breath on exertion. LUNGS: Denies cough, hemoptysis, wheezing or shortness of breath. GASTROINTESTINAL: Denies changes in appetite, nausea, vomiting, diarrhea or constipation. GENITOURINARY: No history of frequency, urgency, hesitancy or nocturia. NEUROLOGIC: Denies history of numbness, tingling, or tremor. PSYCHIATRIC: No history of panic, anxiety or depression. ENDOCRINE: No history of heat or cold intolerance, polyuria or polydipsia. EXTREMITIES: Denies joint pain, pain on walking or stiffness. Physical Exam: Vital Signs: Vital Signs Date Time Temp Pulse Resp B/P (MAP) Pulse Ox O2 Delivery O2 Flow Rate FiO2 06/13/20 10:59 97.6 60 18 133/82 (99) 99 Room Air 97.6 Physcial Exam: GEN: No apparent distress. Alert and oriented HEENT: Normal cephalic, atraumatic, external auditory canals are patent EYES: Extraocular muscles are intact, pupil are equally round and reactive to light and accommodation MUSCULOSKELETAL: Well developed , well nourished, good range of motion ENDOCRINE: No thyromegaly was palpated LYMPHATICS: No cervical chain or axillary nodes were noted HEMATOPOIETIC: No bruising NECK: Supple, no JVD, no thyromegaly was noted LUNGS: Clear to auscultation in all lung bryan without rhonchi or wheezing HEART: RRR, S!, S2 present. Peripheral pulses intact, no obvious murmurs noted ABDOMEN: Soft, nontender. Positive bowel sounds, no organomegaly, normal bowel sounds EXTREMITIES: Without clubbing, cyanosis, or edema. Pedal pulses intact. Negative Homans sign NEUROLOGIC: Normal speech and tone. A&O x 3, moves all extremities, no obvious focal deficits PSYCHIATRIC: Normal affect, normal mood. Stable SKIN: No ulcerations or rashes, good skin turgor, no jaundice VASCULAR: Good capillary refill, neurovascular bundle appears to be intact Labs: Labs: Laboratory Tests Test 06/13/20 00:25 06/13/20 01:05 06/13/20 05:30 06/13/20 08:11 White Blood Count 8.6 x10^3/uL (4.0-11.0) Red Blood Count 4.92 x10^6/uL (4.30-5.70) Hemoglobin 14.4 g/dL (13.0-17.5) Hematocrit 41.7 % (39.0-53.0) Mean Corpuscular Volume 85 fL (79-100) Mean Corpuscular Hemoglobin 29 pg (25-35) Mean Corpuscular Hemoglobin Concent 35 g/dL (31-37) Red Cell Distribution Width 13.4 % (11.5-14.5) Platelet Count 306 x10^3/uL (140-400) Neutrophils (%) (Auto) 64 % (31-73) Lymphocytes (%) (Auto) 23 % (24-48) Monocytes (%) (Auto) 10 % (0-9) Eosinophils (%) (Auto) 2 % (0-3) Basophils (%) (Auto) 1 % (0-3) Neutrophils # (Auto) 5.5 x10^3/uL (1.8-7.7) Lymphocytes # (Auto) 2.0 x10^3/uL (1.0-4.8) Monocytes # (Auto) 0.9 x10^3/uL (0.0-1.1) Eosinophils # (Auto) 0.2 x10^3/uL (0.0-0.7) Basophils # (Auto) 0.1 x10^3/uL (0.0-0.2) Sodium Level 142 mmol/L (136-145) Potassium Level 3.6 mmol/L (3.5-5.1) Chloride Level 105 mmol/L (98-107) Carbon Dioxide Level 27 mmol/L (21-32) Anion Gap 10 (6-14) Blood Urea Nitrogen 11 mg/dL (8-26) Creatinine 1.0 mg/dL (0.7-1.3) Estimated GFR (Cockcroft-Gault) 94.3 BUN/Creatinine Ratio 11 (6-20) Glucose Level 90 mg/dL (70-99) Calcium Level 9.0 mg/dL (8.5-10.1) Total Bilirubin 0.7 mg/dL (0.2-1.0) Aspartate Amino Transf (AST/SGOT) 15 U/L (15-37) Alanine Aminotransferase (ALT/SGPT) 23 U/L (16-63) Alkaline Phosphatase 63 U/L (46-116) Troponin I Quantitative 0.063 ng/mL (0.000-0.055) 0.065 ng/mL (0.000-0.055) 0.058 ng/mL (0.000-0.055) Total Protein 7.5 g/dL (6.4-8.2) Albumin 3.9 g/dL (3.4-5.0) Albumin/Globulin Ratio 1.1 (1.0-1.7) Triglycerides Level 86 mg/dL (0-150) Cholesterol Level 154 mg/dL (0-200) LDL Cholesterol, Calculated 98 mg/dL (0-100) VLDL Cholesterol, Calculated 17 mg/dL (0-40) Non-HDL Cholesterol Calculated 115 mg/dL (0-129) HDL Cholesterol 39 mg/dL (40-60) Cholesterol/HDL Ratio 3.9 D-Dimer (Marysol) < 0.27 ug/mlFEU Creatine Kinase 89 U/L (39-308) Test 06/13/20 10:26 Urine Collection Type Unknown Urine Color Yellow Urine Clarity Clear Urine pH 6.0 (<5.0-8.0) Urine Specific [place] 1.020 (1.000-1.030) Urine Protein Negative mg/dL (NEG-TRACE) Urine Glucose (UA) Negative mg/dL (NEG) Urine Ketones (Stick) Negative mg/dL (NEG) Urine Blood Negative (NEG) Urine Nitrite Negative (NEG) Urine Bilirubin Negative (NEG) Urine Urobilinogen Dipstick 0.2 mg/dL (0.2 mg/dL) Urine Leukocyte Esterase Negative (NEG) Urine RBC 0 /HPF (0-2) Urine WBC 0 /HPF (0-4) Urine Squamous Epithelial Cells Few /LPF Urine Bacteria 0 /HPF (0-FEW) Urine Mucus Slight /LPF Urine Opiates Screen Neg (NEG) Urine Methadone Screen Neg (NEG) Urine Barbiturates Neg (NEG) Urine Phencyclidine Screen Neg (NEG) Urine Amphetamine/Methamphetamine Neg (NEG) Urine Benzodiazepines Screen Neg (NEG) Urine Cocaine Screen Neg (NEG) Urine Cannabinoids Screen Neg (NEG) Urine Ethyl Alcohol Neg (NEG) Laboratory Tests Test 06/13/20 00:25 06/13/20 01:05 06/13/20 05:30 06/13/20 08:11 White Blood Count 8.6 x10^3/uL (4.0-11.0) Red Blood Count 4.92 x10^6/uL (4.30-5.70) Hemoglobin 14.4 g/dL (13.0-17.5) Hematocrit 41.7 % (39.0-53.0) Mean Corpuscular Volume 85 fL (79-100) Mean Corpuscular Hemoglobin 29 pg (25-35) Mean Corpuscular Hemoglobin Concent 35 g/dL (31-37) Red Cell Distribution Width 13.4 % (11.5-14.5) Platelet Count 306 x10^3/uL (140-400) Neutrophils (%) (Auto) 64 % (31-73) Lymphocytes (%) (Auto) 23 % (24-48) Monocytes (%) (Auto) 10 % (0-9) Eosinophils (%) (Auto) 2 % (0-3) Basophils (%) (Auto) 1 % (0-3) Neutrophils # (Auto) 5.5 x10^3/uL (1.8-7.7) Lymphocytes # (Auto) 2.0 x10^3/uL (1.0-4.8) Monocytes # (Auto) 0.9 x10^3/uL (0.0-1.1) Eosinophils # (Auto) 0.2 x10^3/uL (0.0-0.7) Basophils # (Auto) 0.1 x10^3/uL (0.0-0.2) Sodium Level 142 mmol/L (136-145) Potassium Level 3.6 mmol/L (3.5-5.1) Chloride Level 105 mmol/L (98-107) Carbon Dioxide Level 27 mmol/L (21-32) Anion Gap 10 (6-14) Blood Urea Nitrogen 11 mg/dL (8-26) Creatinine 1.0 mg/dL (0.7-1.3) Estimated GFR (Cockcroft-Gault) 94.3 BUN/Creatinine Ratio 11 (6-20) Glucose Level 90 mg/dL (70-99) Calcium Level 9.0 mg/dL (8.5-10.1) Total Bilirubin 0.7 mg/dL (0.2-1.0) Aspartate Amino Transf (AST/SGOT) 15 U/L (15-37) Alanine Aminotransferase (ALT/SGPT) 23 U/L (16-63) Alkaline Phosphatase 63 U/L (46-116) Troponin I Quantitative 0.063 ng/mL (0.000-0.055) 0.065 ng/mL (0.000-0.055) 0.058 ng/mL (0.000-0.055) Total Protein 7.5 g/dL (6.4-8.2) Albumin 3.9 g/dL (3.4-5.0) Albumin/Globulin Ratio 1.1 (1.0-1.7) Triglycerides Level 86 mg/dL (0-150) Cholesterol Level 154 mg/dL (0-200) LDL Cholesterol, Calculated 98 mg/dL (0-100) VLDL Cholesterol, Calculated 17 mg/dL (0-40) Non-HDL Cholesterol Calculated 115 mg/dL (0-129) HDL Cholesterol 39 mg/dL (40-60) Cholesterol/HDL Ratio 3.9 D-Dimer (Marysol) < 0.27 ug/mlFEU Creatine Kinase 89 U/L (39-308) Test 06/13/20 10:26 Urine Collection Type Unknown Urine Color Yellow Urine Clarity Clear Urine pH 6.0 (<5.0-8.0) Urine Specific [place] 1.020 (1.000-1.030) Urine Protein Negative mg/dL (NEG-TRACE) Urine Glucose (UA) Negative mg/dL (NEG) Urine Ketones (Stick) Negative mg/dL (NEG) Urine Blood Negative (NEG) Urine Nitrite Negative (NEG) Urine Bilirubin Negative (NEG) Urine Urobilinogen Dipstick 0.2 mg/dL (0.2 mg/dL) Urine Leukocyte Esterase Negative (NEG) Urine RBC 0 /HPF (0-2) Urine WBC 0 /HPF (0-4) Urine Squamous Epithelial Cells Few /LPF Urine Bacteria 0 /HPF (0-FEW) Urine Mucus Slight /LPF Urine Opiates Screen Neg (NEG) Urine Methadone Screen Neg (NEG) Urine Barbiturates Neg (NEG) Urine Phencyclidine Screen Neg (NEG) Urine Amphetamine/Methamphetamine Neg (NEG) Urine Benzodiazepines Screen Neg (NEG) Urine Cocaine Screen Neg (NEG) Urine Cannabinoids Screen Neg (NEG) Urine Ethyl Alcohol Neg (NEG) Images: Images All labs, images, and reports were reviewed by me personally Chest AP portable at 12:04 AM: Reason for examination: Chest pain. Comparison is made to previous study dated 01/07/2019. The heart size is normal. Mediastinum is unremarkable. Lung bryan are clear. No acute bony abnormalities are seen. Impression: No acute cardiopulmonary disease. Assessment/Plan Assessment/Plan Chest pain rule out ACS History of anxiety GERD Admit to medicine Cardiology consult Low DINORA score troponins are stable but elevated Continue aspirin Continue nitroglycerin as needed for pain IV morphine as needed Pending echo Continue telemetry monitoring Monitor for electrolyte abnormalities Avoid NSAIDs SCD and ambulation for DVT prophylaxis Protonix GI prophylaxis Regular diet Full code Discussed with RN and SW Dispo pending echo and cardiology evaluation Justicifation of Admission Dx: Justifications for Admission: Justification of Admission Dx: Yes Angina: New-Onset FAHEEM KINNEY MD Jun 13, 2020 13:58
--- NOTE | 2020-06-13 14:29 | CARD ---
MR#: [id number] Date of Study: 06/13/2020 Ordering Physician: MONTRELL GREEN, Referring Physician: MONTRELL GREEN, Tech: Keri Arriaza APPROVED REPORT EXAM: Two-dimensional and M-mode echocardiogram with Doppler and color Doppler. Other Information Quality : AverageHR: 56bpm INDICATION Elevated Troponin 2D DIMENSIONS RVDd4.0 (2.9-3.5cm)Left Atrium(2D)3.3 (1.6-4.0cm) IVSd1.1 (0.7-1.1cm)Aortic Root(2D)3.5 (2.0-3.7cm) LVDd5.8 (3.9-5.9cm)LVOT Diameter2.3 (1.8-2.4cm) PWd0.9 (0.7-1.1cm)LVDs4.7 (2.5-4.0cm) FS (%) 19.3 %SV66.0 ml LVEF(%)39.2 (>50%) Aortic Valve AoV Peak Miguel.126.2cm/sAoV VTI26.0cm AO Peak GR.6.4mmHgLVOT Peak Miguel.102.9cm/s LVOT VTI 22.98cmAO Mean GR.4mmHg RONAL (VMAX)2.41mn0DCK (VTI)3.82cm2 Mitral Valve MV E Lliqqexm83.9cm/sMV DECEL ZQGQ323uu MV A Fdmgkzab36.5cm/sMV E Mean Gr.1mmHg MV DBD61xtW/A Ratio2.3 MVA (PHT)2.77cm2 TDI E/Lateral E'4.2E/Medial E'7.2 Pulmonary Valve PV Peak Hrszqxfo587.8cm/sPV Peak Grad.5mmHg Tricuspid Valve TR P. Abuctreq681jx/sRAP TWNDRTBN6tcFt TR Peak Gr.44mcCkGMUT44yrLd Pulmonary Vein S1 Kxxpgqnx32.4cm/sD2 Mwzqnwiz58.7cm/s PVa qziejdbm044kxai LEFT VENTRICLE The left ventricle is normal size. There is normal left ventricular wall thickness. The left ventricu lar systolic function is mildly decreased. EF 45% There is slight global hypokinesis of the left vent ricle. Tissue Doppler imaging reveals mild left ventricular diastolic dysfunction. RIGHT VENTRICLE The right ventricle is normal size. There is normal right ventricular wall thickness. The right ventr icular systolic function is normal. ATRIA The left atrium size is normal. The right atrium size is normal. The interatrial septum is intact wit h no evidence for an atrial septal defect or patent foramen ovale as noted on 2-D or Doppler imaging. AORTIC VALVE The aortic valve is normal in structure and function. Doppler and Color Flow revealed no significant aortic regurgitation. There is no significant aortic valvular stenosis. Calculated aortic valve area is 2.74 cm2 with maximum pressure gradient of 7 mmHg and mean pressure gradient of 4 mmHg. MITRAL VALVE The mitral valve is normal in structure and function. There is no evidence of mitral valve prolapse. There is no mitral valve stenosis. Doppler and Color-flow revealed trace mitral regurgitation. TRICUSPID VALVE The tricuspid valve is normal in structure and function. Doppler and Color Flow revealed trace tricus pid regurgitation with an estimated PAP of 33 mmHg. There is no tricuspid valve stenosis. PULMONIC VALVE The pulmonic valve is not well visualized. Doppler and Color Flow revealed no pulmonic valvular regur gitation. There is no pulmonic valvular stenosis. GREAT VESSELS The aortic root is normal in size. The ascending aorta is normal in size. The IVC is normal in size a nd collapses >50% with inspiration. PERICARDIAL EFFUSION There is no evidence of significant pericardial effusion. Critical Notification Critical Value: No <Conclusion> The left ventricular systolic function is mildly decreased. EF 45% There is slight global hypokinesis of the left ventricle. Signed by : Felipe Blood, Electronically Approved : 06/13/2020 14:28:53
[2020-06-13 15:00] VITALS: BP 132/75
[2020-06-13 19:00] VITALS: BP 135/82
[2020-06-13 23:00] VITALS: BP 126/64
[2020-06-14 03:00] VITALS: BP 138/63
[2020-06-14 07:00] VITALS: BP 140/82
[2020-06-14] MEDS: SERTRALINE 50 MG TABLET. PO SCH (07:36)
[2020-06-14] MEDS: PANTOPRAZOLE 40 MG TABLET.DR. PO SCH (07:36)
[2020-06-14 11:00] VITALS: BP 140/86
--- NOTE | 2020-06-14 12:03 | PDOC ---
CARDIO Progress Notes Date and Time Date of Service 06/14/2020 Time of Evaluation 0930 Subjective Subjective: No shortness of breath, No Palpitations, Other (still have some mild midsternal chest pain but tolerable) Vitals Vitals Vital Signs Date Time Temp Pulse Resp B/P (MAP) Pulse Ox O2 Delivery O2 Flow Rate FiO2 06/14/20 11:00 97.3 70 18 140/86 (104) 96 Room Air 97.3 Weight Weight [ ] Input and Output Intake and Output Intake and Output 06/14/20 07:00 Intake Total 950 ml Balance 950 ml Intake Oral 950 ml # Voids 2 Laboratory Labs Laboratory Tests Test 06/14/20 10:50 SARS-CoV-2 Antigen (Rapid) Negative (NEGATIVE) Physical Exam HEENT: Neck Supple W Full Motion Chest: Symmetric LUNGS: Clear to Auscultation Heart: RRR (SR no ectopies with intermittent SB lowest in the upper 40s) Abdomen: Soft N/T Extremities: No Edema, No Calf Tenderness Neurology: alert, oriented, follow commands Assessment Assessment 1. Atypical chest pain: possibly MSK. No parrhythmias 2. Mild troponin elevation; peaked 0.063. Most probably type II, demand ischemia 3. Asthma 4. Mild cardiomyopathy: EF at 45% with mild global hypokinesis of the LV 5. Asymptomatic SB: lowst in the upper 40s mainly while asleep. Recommendations 1. Will obtain treadmill MPI for completeness and to rule out any associated ischemia. I did discuss with pt about s/s from prioe 1-2 months ago and mentioned SOA some chills but denies any potential exposure to covid or long distance travels. If MPI is inconclusive part of the differential would postinfectious anomaly from viral infection such as covid. Will obtai rapid screeen and if negative the will proceed with MPI 2. Further GDMT once MPI result is noted and would consider for outpt cardiac MRI pending above result. No known hereditary cardiac issues were reported per pt. Justicifation of Admission Dx: Justifications for Admission: Justification of Admission Dx: Yes Angina: New-Onset MONTRELL GREEN FISHER LAMPARA NET Jun 14, 2020 12:03
--- NOTE | 2020-06-14 12:21 | NUR ---
SS following up with discharge planning. SS reviewed pt chart and discussed with pt RN. Pt is currently on room air. Pt has ejection fraction of 45%. MPI ordered. COVID19 negative. SS will continue to follow for discharge planning.
--- NOTE | 2020-06-14 13:55 | DISCH ---
DISCHARGE INSTRUCTIONS Condition on Discharge Condition on Discharge: Stable Activity After Discharge Activity Instructions for Disc: No restrictions Diet after Discharge Diet after Discharge: Cardiac Contacting the DR. after DC Call your doctor for: If your condition worsens Follow-Up Follow up with: Cardiology and followed recommendations Follow Up With: PCP within 1 week of discharge FAHEEM KINNEY MD Jun 14, 2020 13:55
--- NOTE | 2020-06-14 14:47 | RAD ---
MR#: [id number] Date of Study: 06/14/2020 Ordering Physician: MONTRELL GREEN, Referring Physician: JOANN CALVILLO Tech: ANGELES Mitchell ARRT (Ester) (N) APPROVED REPORT Test Type: Exercise Stress Nurse/Tech: Raine Humphries R.N. Test Indications: chest pain Cardiac History: none Medications: see ehr Medical History: see ehr Resting ECG: SR with PAC Resting Heart Rate: 77 bpm Resting Blood Pressure: 148/82mmHg Pretest Chest Pain: No chest pain Nurse/Tech Notes lungs cta, heart tones regular Consent: The procedure was explained to the patient in lay terms. Informed consent was witnessed. Nehemias eout was entered into [facility]. History and Stress Test performed by ANGELES Mitchell ARRT (R) (N) Stress Symptoms chest pain 4/10 sharp in stage 3 of exercise-resolved POST EXERCISE Reason for Termination: Reached target heart rate Target HR: Yes Max HR: 179 bpm 90% of Maximum Predicted HR: 199 bpm Exercise duration: 8:59 min:sec, 3 Stage Exercise capacity: 10.0METs Max Blood Pressure: 157/81mmHg Blood Pressure response to exercise: Normal blood pressure response during stress. Heart Rate response to exercise: normal Chest Pain: Yes. 4/10 in stage 3 exercise-resolved Arrhythmia: Yes. PVCs noted in recovery ST Change: No. INTERPRETATION Stress EKG Conclusion: No evidence of stress induced ischemic changes. Imaging Protocol IMAGE PROTOCOL: Rest Tc-99m/stress Tc-99m 1 day Rest: Stress: Viability: Radiopharm.Tc99m BptkgvgaySk83a Sestamibi Owom69pDm 33mCi Img Date 06/14/2020 06/14/2020 Inj-Img Yfpg06tpb. 60min. Rest Admin Site:IV - Left HandAdministrator:CAITLIN Zaragoza Stress Admin Site: IV - Left HandAdministrator: ANGELES Mitchell ARRT (Ester)(N) STRESS DATA End Diast. Vol.164.0mlAv. Heart Rate82.0bpm End Syst. Vol.47.0mlCO Index BSA0.0L/min Myocardial Luyu049.0gEject. Edtujepy30.0% Stress Rates Pk. Fill Rate3.11EDV/secLVtime Pk. Fill 182.30msec Pk. Empty Rate3.41ESV/secLVtime Pk. Zydvp119.82msec 1/3 Pk. Fill1.65EDV/sec Stress Scores Regional WT1.00Summed WT6.00 Regional WM0.00Summed WM0.00 LV Perfusion There is a small sized, severe in intensity FIXED apical perfusion defect suggestive of prior infarct versus apical thinning (normal variant). Wall Motion Normal wall motion. EF > 55% LV Perf. Quant 17 Seg. SSS4.00 17 Seg. SRS2.00 17 Seg. SDS2.00 Stress Defect Extent (% LAD)23.80Rest Defect Extent (% LAD)11.30Rev. Defect Extent (% LAD)13.10 Stress Defect Extent (% LCX) 0.00Rest Defect Extent (% LCX)0.00Rev. Defect Extent (% LCX)0.00 Stress Defect Extent (% RCA)0.00Rest Defect Extent (% RCA)0.00Rev. Defect Extent (% RCA)0.00 Stress Defect Extent (% JACQUE)10.20Rest Defect Extent (% JACQUE)4.60Rev. Defect Extent (% JACQUE)6.10 Other Information Quality:Average Risk Assessment: Low Risk Conclusion 1. No evidence of stress induced EKG changes. 2. Average exercise capacity 3. Fixed apical perfusion defect. No active ischemia 4. Normal EF at > 55% 5. Low risk study Signed by : Felipe Blood, Electronically Approved : 06/14/2020 14:46:26
[2020-06-14 15:00] VITALS: BP 135/81
--- NOTE | 2020-06-14 19:52 | PDOC3 ---
[facility]-Discharge Summary Date of Admission: Date of Admission: Jun 13, 2020 Date of Discharge: Date of Discharge: Jun 14, 2020 Admission Diagnosis: Admitting Diagnosis: Chest pain rule out ACS History of anxiety GERD Discharge Diagnosis: Discharge Diagnosis: Chest pain ACS ruled out History of anxiety GERD Consults: Consults: Cardiology Procedures: Procedures: Stress test Echocardiogram Hospital Course: Hospital Course: 19-year-old male with history of GERD who presents to the ED with history of chest pain that started last night at 11 PM. He describes the pain as 4-5 out of 10, sharp, parasternal. Pain would last less than 5 minutes disappear. There are no exacerbating or alleviating factors. Pain does not radiate to arms or shoulders. Patient does endorse numbness of his left arm. 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 He denies any nausea vomiting, diaphoresis, shortness of breath, abdominal pain, or dysuria. Patient does describe heartburn symptoms occasionally in which she does take omeprazole as needed. Denies feelings of odynophagia or choking or drooling episodes. Patient does endorse a 20 pound weight loss in the last 2 months, however he states that this is intentional as he is trying to control his weight by eating appropriately Patient was found to have elevated troponins therefore, Patient underwent cardiology evaluation upon admission. Echocardigram did show reduced EF therefore a treadmill stress test was completed, which did not show any ischemic changes. Patient's chest pain improved from 8/10 to 3/10 on day of discharge. The rest of the hospital course was uneventful. Physical exam on discharge: GEN: No apparent distress. Alert and oriented LUNGS: Clear to auscultation in all lung bryan without rhonchi or wheezing HEART: RRR, S!, S2 present. Peripheral pulses intact, no obvious murmurs noted ABDOMEN: Soft, nontender. Positive bowel sounds, no organomegaly, normal bowel sounds EXTREMITIES: Without clubbing, cyanosis, or edema. Pedal pulses intact. Negative Homans sign Disposition: Disposition/Orders: D/C to Home Activity: Activity: Resume previous activity Diet: Diet: Regular Medications: Home Meds Active Scripts Lactulose (LACTULOSE) 20 Gm/30 Ml Solution, 20 GM PO BID PRN for CONSTIPATION, #1 BOT Prov:GAGE ROSARIO MD 1/14/20 Lactulose (LACTULOSE) 20 Gm/30 Ml Solution, 20 GM PO BID PRN for CONSTIPATION, #1 BOTTLE Prov:GAGE ROSARIO MD 11/29/19 Reported Medications Sertraline Hcl (ZOLOFT) 50 Mg Tablet, 50 MG PO DAILY for ANTI-DEPRESSANT, TAB 0 Refills 06/29/19 Scheduled Sertraline Hcl (Zoloft), 50 MG PO DAILY, (Reported) Scheduled PRN Lactulose (Lactulose), 20 GM PO BID PRN for CONSTIPATION Lactulose (Lactulose), 20 GM PO BID PRN for CONSTIPATION Total Time: Total Time: Total time spent on this discharge was 25 minutes Justicifation of Admission Dx: Justifications for Admission: Justification of Admission Dx: Yes Angina: New-Onset FAHEEM KINNEY MD Jun 14, 2020 19:51
--- NOTE | 2020-06-15 10:30 | NUR ---
IP: Notified pt of + COVID results. Informed pt to self quarantine for 14 days. Verbalized understanding. All questions answered.
== END 2020-06-14 16:00 | disposition home or self-care (01) | DRG 178 ==
LOC: ER 23:05 → 2 NORTH 06-13 02:30 → OBSVTOIN 06-13 02:32
PROVIDERS: ADMIT Internal Medicine; ATTEND Internal Medicine
DX: U07.1 COVID-19 (principal); I42.9 Cardiomyopathy, unspecified; R07.89 Other chest pain; F41.9 Anxiety disorder, unspecified; J45.909 Unspecified asthma, uncomplicated; K21.9 Gastro-esophageal reflux disease without esophagitis
CPT/HCPCS: 36415; 71045; 78452; 80053; 80061; 80307; 81001; 82550; 84484; 85025; 85379; 87426; 93005; 93017; 93306; 99285; A9500; G0379; G0378; U0003-CS

== ENCOUNTER 2020-07-02 18:50 | Emergency (ER) | payer BC ==
[~2020-07-02] VITALS: Ht 190.5 cm; Wt 122.7 kg
[2020-07-02] MEDS ORDERED: KETOROLAC 30 MG/ML VIAL. IVP ONE (19:30)
--- NOTE | 2020-07-02 19:47 | PHYS DOC ---
Past Medical History Past Medical History: Anxiety, Asthma, Other Additional Past Medical Histor: LAINA Past Surgical History: No Surgical History Additional Past Surgical Histo: NASAL SX Smoking Status: Never Smoker Alcohol Use: Occasionally Drug Use: None General Adult EDM: Chief Complaint: CHEST PAIN HPI: HPI: Patient is a 20 year old male who presents with vague complaints of chest pain. Patient is a 20-year-old male who was recently admitted to the hospital had a stress test done which was negative after some slightly elevated troponins were performed. Patient states that he has a pain that is centered around the superior anterior left chest. It seems to sometimes radiate from the middle of the chest towards this towards the AC joint on the left side. This is where most of his pain is. He reports that it is intermittent, sharp when it happens will last for about an hour. It Is not brought on by anything but he notes it mostly at rest. Patient denies any burning sensation in his chest, epigastrium, cough, shortness of breath other than pain with breathing. Patient denied any dizziness. Today he was at [facility] and about 30 minutes prior to his arrival said that his friend thought that he was slurring his speech and you also have his chest pain. Patient also complained of a sense of doom when this happened to him. Currently he reports that he does not think he was slurring his words but is concerned about his chest pain. Review of Systems: Review of Systems: Constitutional: Denies fever or chills. [] Eyes: Denies change in visual acuity. [] HENT: Denies nasal congestion or sore throat. [] Respiratory: Denies cough or shortness of breath. [] Cardiovascular: See HPI [] GI: Denies abdominal pain, nausea, vomiting, bloody stools or diarrhea. [] : Denies dysuria. [] Musculoskeletal: Denies back pain or joint pain. [] Integument: Denies rash. [] Neurologic: See HPI [] Endocrine: Denies polyuria or polydipsia. [] Lymphatic: Denies swollen glands. [] Psychiatric: Denies depression or anxiety. [] Heart Score: Risk Factors: Risk Factors: DM, Current or recent (<one month) smoker, HTN, HLP, family history of CAD, obesity. Risk Scores: Score 0 - 3: 2.5% MACE over next 6 weeks - Discharge Home Score 4 - 6: 20.3% MACE over next 6 weeks - Admit for Clinical Observation Score 7 - 10: 72.7% MACE over next 6 weeks - Early Invasive Strategies Allergies: Allergies: Allergies Coded Allergies Type Severity Reaction Last Updated Verified Iodinated Contrast Media Allergy Severe Swelling 06/13/20 Yes latex Allergy Intermediate 06/29/19 Yes Physical Exam: PE: Constitutional: Well developed, well nourished, no acute distress, non-toxic appearance. [] HENT: Normocephalic, atraumatic, bilateral external ears normal, oropharynx moist, no oral exudates, nose normal. [] Eyes: PERRLA, EOMI with strabismus of the right eye, conjunctiva normal, no discharge. [] Neck: Normal range of motion, no tenderness, supple, no stridor. No bruit [] Cardiovascular: Heart rate regular rhythm, no murmur [] Lungs & Thorax: Bilateral breath sounds clear to auscultation, chest wall tender to palpation in the left anterior superior costochondral margin reproducing his pain [] Abdomen: Bowel sounds normal, soft, no tenderness, no masses, no pulsatile masses. [] Skin: Warm, dry, no erythema, no rash. [] Back: No tenderness, no CVA tenderness. [] Extremities: No tenderness, no cyanosis, no clubbing, ROM intact, no edema. The left coracoid process was tender to palpation reproducing his pain, this pain was worse with the Livier test, there is also some tenderness along the AC joint as well. [] Neurologic: Alert and oriented X 3, normal motor function, normal sensory function, no focal deficits noted. [] Psychologic: Affect normal, judgement normal, mood normal. [] Current Patient Data: Vital Signs: Vital Signs Date Time Temp Pulse Resp B/P (MAP) Pulse Ox O2 Delivery O2 Flow Rate FiO2 07/02/20 19:00 98.3 82 17 143/78 (99) 98 Room Air 98.3 EKG: EKG: Heart rate 74 bpm, normal sinus rhythm, normal intervals, normal axis, normal ECG [] Radiology/Procedures: Radiology/Procedures: No acute process[] Course & Med Decision Making: Course & Med Decision Making Pertinent Labs and Imaging studies reviewed. (See chart for details) 2125-patient was seen and examined. Patient does not have any evidence of a stroke at this time with a normal NIHSS. In addition he denied any dysarthria. On today I did discuss with him his chest pain. I think at this point this is noncardiac in nature most likely is medical center representative of musculoskeletal issue. I discussed with him treatment plan, reasons to return and need for follow-up. Note that the patient did improve with Toradol [] Dragon Disclaimer: Dragon Disclaimer: This electronic medical record was generated, in whole or in part, using a voice recognition dictation system. Departure Departure Impression: Primary Impression: Bicipital tendinitis of left shoulder Additional Impression: Chest wall pain Disposition: HOME, SELF-CARE Condition: GOOD Referrals: JEAN CLAUDE PABON APRN (PCP) Patient Instructions: Bicipital Tendonitis, Chest Wall Pain Additional Instructions: Aleve 2 pills twice a day with food, hold for stomach upset, return to the ER if you see black stools. In addition I would use heat on a as needed basis 3 or 4 times a day Justicifation of Admission Dx: Justifications for Admission: Justification of Admission Dx: Yes Angina: New-Onset NIHSS Stroke Scale NIH Stroke Scale: NIH Stroke Scale Response (Comments) Value Level of Consciousness: 0 Alert/Responsive 0 LOC Questions: 0 Answers both correctly 0 LOC Commands: 0 Performs both tasks 0 Best Gaze: 0 Normal 0 Visual: 0 No visual loss 0 Facial Palsy: 0 Normal, symmetrical 0 Motor - Left Arm 0 No drift 0 Motor - Right Arm 0 No drift 0 Motor - Left Leg 0 No drift 0 Motor: Right Leg 0 No drift 0 Limb Ataxia: 0 Absent 0 Sensory: 0 No loss 0 Best Language: 0 Normal 0 Dysathria: 0 Normal 0 Extinction and Inattention: 0 Normal 0 Total 0 BETTY DINH MD Jul 02, 2020 19:47
--- NOTE | 2020-07-02 20:15 | RAD ---
PA and lateral chest radiographs 07/02/2020 CLINICAL HISTORY: Chest pain. PA and lateral digital radiographs of chest were obtained. Comparison study is dated 06/13/2020. The cardiac and mediastinal silhouettes are within normal limits in size and configuration. No acute pulmonary infiltrate is seen. No pleural effusion or pneumothorax is noted. The osseous structures are grossly intact. IMPRESSION: No acute abnormality is seen. Electronically signed by: Galen Camacho MD (07/02/2020 8:12 PM) [id number]
[2020-07-02 20:27] LABS: BASO # 0.1 x10^3/uL (0.0-0.2); BASO % 1 % (0-3); EOS # 0.2 x10^3/uL (0.0-0.7); EOS % 1 % (0-3); HEMATOCRIT 42.6 % (39.0-53.0); HEMOGLOBIN 14.4 g/dL (13.0-17.5); LYMPH # 1.9 x10^3/uL (1.0-4.8); LYMPH % 18 % (24-48); MEAN CORPUSCULAR HEMOGLOBIN 29 pg (25-35); MEAN CORPUSCULAR HGB CONC 34 g/dL (31-37); MEAN CORPUSCULAR VOLUME 86 fL (79-100); MONO # 0.8 x10^3/uL (0.0-1.1); MONO % 7 % (0-9); NEUT # 7.7 x10^3/uL (1.8-7.7); NEUT % 73 % (31-73); PLATELET COUNT 300 x10^3/uL (140-400); RED BLOOD COUNT 4.97 x10^6/uL (4.30-5.70); RED CELL DISTRIBUTION WIDTH 13.6 % (11.5-14.5); WHITE BLOOD COUNT 10.6 x10^3/uL (4.0-11.0)
[2020-07-02 20:35] LABS: CALCIUM 9.3 mg/dL (8.5-10.1); GFR 93.4; POTASSIUM 4.2 mmol/L (3.5-5.1)
[2020-07-02 21:22] VITALS: BP 124/62
--- NOTE | 2020-07-03 07:54 | EKG ---
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
== END 2020-07-02 21:42 | disposition home or self-care (01) ==
LOC: ER 18:50
DX: M75.22 Bicipital tendinitis, left shoulder (principal); R07.89 Other chest pain; R47.81 Slurred speech; F41.9 Anxiety disorder, unspecified; J45.909 Unspecified asthma, uncomplicated; Z98.890 Other specified postprocedural states; Z91.040 Latex allergy status; Z91.041 Radiographic dye allergy status
CPT/HCPCS: 36415; 71046; 80048; 84484; 85025; 93005; 96374; 99285; J1885

== ENCOUNTER 2020-07-30 14:12 | Emergency (ER) | payer BC ==
[~2020-07-30] VITALS: Ht 188 cm; Wt 122.3 kg
--- NOTE | 2020-07-30 16:07 | PHYS DOC ---
Past Medical History Past Medical History: Anxiety, Asthma, Other Additional Past Medical Histor: ASBERGERS (YANCY HAWKINS APRN) Past Surgical History: Other Additional Past Surgical Histo: rhinoplasty (YANCY HAWKINS APRN) Smoking Status: Never Smoker Alcohol Use: Occasionally Drug Use: None (YANCY HAWKINS APRN) General Adult EDM: Chief Complaint: FOREIGN BODY HPI: HPI: Patient is a 20 year old male who presents to the emergency department with complaints of feeling like something is stuck in his throat. Patient states that he feels like there is tightness in his throat for the last hour. It started shortly after he had been eating a chocolate bar that had almonds in it. Patient denies any previous history of allergy to nuts. He denies any nausea, vomiting, shortness of breath, wheezing, abdominal pain, dysphasia, or wheezing. He currently denies any pain. Patient reports that he is starting to feel better. (YANCY HAWKINS APRN) Review of Systems: Review of Systems: Complete ROS is negative unless otherwise stated in the HPI. (YANCY HAWKINS APRN) Heart Score: Risk Factors: Risk Factors: DM, Current or recent (<one month) smoker, HTN, HLP, family history of CAD, obesity. Risk Scores: Score 0 - 3: 2.5% MACE over next 6 weeks - Discharge Home Score 4 - 6: 20.3% MACE over next 6 weeks - Admit for Clinical Observation Score 7 - 10: 72.7% MACE over next 6 weeks - Early Invasive Strategies (YANCY HAWKINS APRN) Allergies: Allergies: Allergies Coded Allergies Type Severity Reaction Last Updated Verified Iodinated Contrast Media Allergy Severe Swelling 07/30/20 Yes latex Allergy Intermediate 07/30/20 Yes (YANCY HAWKINS APRN) Physical Exam: PE: Constitutional: Well developed, well nourished, no acute distress, non-toxic appearance, obese. [] HENT: Normocephalic, atraumatic, bilateral external ears normal, nose normal, posterior pharynx normal [] Eyes: PERRLA, EOMI, conjunctiva normal, no discharge. [] Neck: Normal range of motion, nontender, supple, no stridor. [] Cardiovascular:Heart rate regular rhythm, no murmur Lungs & Thorax: Respirations even and unlabored, no retractions, no respiratory distress, no wheezing, lungs CTA Skin: Warm, dry, no erythema, no rash. [] Extremities: No cyanosis, ROM intact, no edema. [] Neurologic: Alert and oriented X 3, no focal deficits noted. [] Psychologic: Affect normal, judgement normal, mood normal. [] (YANCY HAWKINS APRN) Current Patient Data: Vital Signs: Vital Signs Date Time Temp Pulse Resp B/P (MAP) Pulse Ox O2 Delivery O2 Flow Rate FiO2 07/30/20 14:50 98.4 77 16 145/89 (107) 97 Room Air 98.4 (YANCY HAWKINS APRN) EKG: EKG: [] (YANCY HAWKINS APRN) Radiology/Procedures: Radiology/Procedures: [] (YANCY HAWKINS APRN) Course & Med Decision Making: Course & Med Decision Making Pertinent Labs and Imaging studies reviewed. (See chart for details) 20-year-old male presented to the emergency room with complaints of a tightness in his throat Physical exam was unremarkable. The patient reported that he was feeling better, vital signs were stable, unremarkable exam. I encouraged the patient to follow-up with his primary care doctor for further evaluation, return to the ER symptoms worsen. Patient verbalized an understanding of home care, medications, follow-up, and return to ED instructions and was in agreement with the plan of care. [] (YANCY HAWKINS APRN) Dragon Disclaimer: Dragon Disclaimer: This electronic medical record was generated, in whole or in part, using a voice recognition dictation system. (YANCY HAWKINS APRN) Departure Departure Impression: Primary Impression: Throat discomfort Disposition: 01 HOME, SELF-CARE Condition: STABLE Referrals: JEAN CLAUDE PABON APRN (PCP) Patient Instructions: Medical Screening Exam Additional Instructions: Warm salt water gargles as needed. He can take Tylenol or ibuprofen as needed for pain. Follow-up with your primary care doctor in 1 to 2 days, return to the ER if your symptoms worsen. Justicifation of Admission Dx: Justifications for Admission: Justification of Admission Dx: Yes Angina: New-Onset (YANCY HAWKINS APRN) Attending Signature Attending Signature I have reviewed the PA/PLASTIC BOAT BUFFER's note and plan of care. I was available for consultation as needed during the patient's visit in the emergency department. I agree with the clinical impression, plan, and disposition. (BRADLEY AGUAYO DO) YANCY HAWKINS APRN Jul 30, 2020 16:07 BRADLEY AGUAYO DO Jul 31, 2020 16:57
[2020-07-30 16:24] VITALS: BP 140/83
== END 2020-07-30 16:24 | disposition home or self-care (01) ==
LOC: ER 14:12
DX: T18.8XXA Foreign body in other parts of alimentary tract, initial encounter (principal); F41.9 Anxiety disorder, unspecified; J45.909 Unspecified asthma, uncomplicated; Z98.890 Other specified postprocedural states; Z91.040 Latex allergy status; Z91.041 Radiographic dye allergy status; X58.XXXA Exposure to other specified factors, initial encounter; Y93.89 Activity, other specified; Y92.89 Other specified places as the place of occurrence of the external cause; Y99.8 Other external cause status
CPT/HCPCS: 99282

== ENCOUNTER 2020-08-14 21:16 | Emergency (ER) | payer BC ==
[~2020-08-14] VITALS: Ht 190.5 cm; Wt 120.5 kg
--- NOTE | 2020-08-14 22:20 | PHYS DOC ---
Past Medical History Past Medical History: Anxiety, Asthma, Other Additional Past Medical Histor: LAINA Past Surgical History: Other Additional Past Surgical Histo: rhinoplasty Smoking Status: Never Smoker Alcohol Use: Occasionally Drug Use: None General Adult EDM: Chief Complaint: MULTIPLE COMPLAINTS HPI: HPI: Patient is a 20 year old [male with a past medical history of anxiety and as thma presents for the evaluation of sore throat and shortness of breath. Patient states on Thursday he was eating a piece of chicken and felt like it got stuck in his throat. Patient states he was evaluated at work [facility] was treated with glucagon with some improvement. Patient currently states discomfort in his throat continue. Patient states since Thursday he is been eating and drinking. Patient also complains of lower back pain. Patient denies any injuries. Patient also complains of shortness of breath. Patient states he feels as if he cannot take a deep breath. On exam patient is alert and oriented x4 he is in no respiratory distress his oxygen saturation 99%. Patient is not salivating he is able to handle his oral secretions. Review of Systems: Review of Systems: Constitutional: Denies fever or chills. [] Eyes: Denies change in visual acuity. [] HENT: Denies nasal congestion or sore throat. [] Respiratory: Denies cough or shortness of breath. [] Cardiovascular: Denies chest pain or edema. [] GI: Denies abdominal pain, nausea, vomiting, bloody stools or diarrhea. [] : Denies dysuria. [] Musculoskeletal: Denies back pain or joint pain. [] Integument: Denies rash. [] Neurologic: Denies headache, focal weakness or sensory changes. [] Endocrine: Denies polyuria or polydipsia. [] Lymphatic: Denies swollen glands. [] Psychiatric: Denies depression or anxiety. [] Heart Score: Risk Factors: Risk Factors: DM, Current or recent (<one month) smoker, HTN, HLP, family history of CAD, obesity. Risk Scores: Score 0 - 3: 2.5% MACE over next 6 weeks - Discharge Home Score 4 - 6: 20.3% MACE over next 6 weeks - Admit for Clinical Observation Score 7 - 10: 72.7% MACE over next 6 weeks - Early Invasive Strategies Allergies: Allergies: Allergies Coded Allergies Type Severity Reaction Last Updated Verified Iodinated Contrast Media Allergy Severe Swelling 07/30/20 Yes latex Allergy Intermediate 07/30/20 Yes Physical Exam: PE: Constitutional: Well developed, well nourished, no acute distress, non-toxic a ppearance. [] HENT: Normocephalic, atraumatic, bilateral external ears normal, oropharynx moist, no oral exudates, nose normal. [Handling oral secretions not salivating able to swallow] Eyes: PERRLA, EOMI, conjunctiva normal, no discharge. [] Neck: Normal range of motion, no tenderness, supple, no stridor. [] Cardiovascular:Heart rate regular rhythm, no murmur [] Lungs & Thorax: No respiratory distress Abdomen: Bowel sounds normal, soft, no tenderness, no masses, no pulsatile masses. [] Skin: Warm, dry, no erythema, no rash. [] Back: No tenderness, no CVA tenderness. [] Extremities: No tenderness, no cyanosis, no clubbing, ROM intact, no edema. [] Neurologic: Alert and oriented X 3, normal motor function, normal sensory function, no focal deficits noted. [] Psychologic: Affect normal, judgement normal, mood normal. [] Current Patient Data: Vital Signs: Vital Signs Date Time Temp Pulse Resp B/P (MAP) Pulse Ox O2 Delivery O2 Flow Rate FiO2 08/14/20 21:32 97.9 70 20 137/71 (93) Room Air 97.9 EKG: EKG: [] Radiology/Procedures: Radiology/Procedures: [] Course & Med Decision Making: Course & Med Decision Making Pertinent Labs and Imaging studies reviewed. (See chart for details) [] Patient was evaluated for chief complaint. Work-up consisted of laboratory a nalysis and radiologic imaging. Radiologic imaging reviewed and discussed with patient. No acute abnormalities. COVID test obtained and pending. Patient was discharged home with instructions to follow-up with primary care physician. Norberto Disclaimer: Norberto Disclaimer: This electronic medical record was generated, in whole or in part, using a voice recognition dictation system. Departure Departure Impression: Primary Impression: Food impaction of esophagus Additional Impressions: Person under investigation for COVID-19 Dyspnea Disposition: 01 HOME, SELF-CARE Condition: STABLE Referrals: JEAN CLAUDE PABON APRN (PCP) Patient Instructions: Shortness of Breath, Sore Throat Additional Instructions: You have been tested for or diagnosed with COVID-19. It is an infection caused by a new type of coronavirus. COVID-19 will cause cold-like or mild flu symptoms in most. It can cause more severe symptoms like problems breathing in some. There is no treatment for COVID-19. The body will clear the infection over time. Self-care will help to ease discomfort. Steps to Take: Self-Care Rest as needed. Healthy habits may help you feel better. Steps include: Choose healthy foods including fruits and vegetables. Drink water throughout the day. Get plenty of sleep each night. If you smoke, try to quit. It may ease breathing. Avoid alcohol. Keep Others Healthy The virus can spread to others. Droplets are released every time you sneeze or cough. The droplets can get into the mouth, nose, or eyes of people near you and lead to infection. To lower the chances of spreading COVID-19 to others: Stay at home until your doctor has said it is safe to leave. If you tested positive this will mean staying isolated until both of the following are true: At least 7 days have passed since the start of illness. You are free of fever for at least 72 hours without the use of medicine. During this time: - Avoid public areas, events, or transportation. Do not return to work or school until your doctor has said it is safe to do so. - Call ahead if you need to go to a medical center. Let them know you may have COVID-19. It will help them guide you where to go. They may also ask you to wear a facemask when you come to the office. - If you call for emergency medical services, let them know you may have COVID- 19. While at home: - Try to avoid close contact with others. Stay about 6 feet away. - If possible, spend most of your time in a separate room from others. - Use a face mask if you will be in close contact with others such as sharing a room or vehicle. - Have someone wipe down common surfaces in the home. Use household tufter hand every day on areas like doorknobs, counters, or sinks. - Cough or sneeze into a tissue. Throw the tissue away right after use. If a tissue is not available, cough or sneeze into your elbow. - Wash your hands often. Wash them after sneezing or coughing. Use soap and water and wash for at least 20 seconds. Alcohol based hand glove cleaner can be used if soap and water is not available. - Do not prepare food for others. Avoid sharing personal items like forks, spoons, or toothbrushes. - Avoid close contact with pets while you are sick. There is no evidence of the virus passing to pets. This is a safety step until more is known about this virus. Isolation can be frustrating. Social interaction can help. Keep in touch with friends and family through phone and tech options. You can still interact with others in your home, just keep a safe distance of about 6 feet. Follow-up: Your doctors office will check in with you to see if there are any changes in your health. You may be asked to keep track of symptoms to share with them. They will also let you know when you are clear to be in public again. Problems to Look Out For: Contact your doctor if your recovery is not going as you expect. Get emergency care if you have problems such as: - Trouble breathing - Nonstop chest pain or pressure - Changes in awareness, confusion, or problems waking - Lips or face have bluish color - Worsening of symptoms If you think you have an emergency, call for emergency medical services right away. As taken from [facility] Justicifation of Admission Dx: Justifications for Admission: Justification of Admission Dx: Yes Angina: New-Onset JONATHAN VIDAL I DO Aug 14, 2020 22:20
--- NOTE | 2020-08-14 22:43 | RAD ---
EXAM: NECK SOFT TISSUE, CHEST AP ONLY 08/14/2020 10:11 PM CLINICAL INDICATION:Foreign body sensation COMPARISON:Chest radiograph 07/02/2020 TECHNIQUE:PA view the chest and AP and lateral views of the neck FINDINGS: CHEST: The heart and mediastinum are normal. Lungs are well-expanded and clear. No pleural effusion or pneumothorax. No radiopaque foreign body. No acute osseous abnormality. NECK: The airway is clear. There is no radiopaque foreign body. The epiglottis is normal. Prevertebral soft tissue is normal. The cervical spine is normal. IMPRESSION:Normal chest and neck. No radiopaque foreign body. Electronically signed by: Nora Smith MD (08/14/2020 10:39 PM) [id number]
[2020-08-14 23:37] VITALS: BP 111/57
--- NOTE | 2020-08-16 13:46 | NUR ---
IP: Informed pt of negative COVID results. Pt verbalized understanding.
== END 2020-08-14 23:41 | disposition home or self-care (01) ==
LOC: ER 21:16
DX: T18.128A Food in esophagus causing other injury, initial encounter (principal); Z20.828 Contact with and (suspected) exposure to other viral communicable diseases; R06.02 Shortness of breath; R06.00 Dyspnea, unspecified; F41.9 Anxiety disorder, unspecified; J45.909 Unspecified asthma, uncomplicated; Z90.89 Acquired absence of other organs; Z98.890 Other specified postprocedural states; Z91.040 Latex allergy status; Z91.041 Radiographic dye allergy status; X58.XXXA Exposure to other specified factors, initial encounter; Y93.89 Activity, other specified; Y92.89 Other specified places as the place of occurrence of the external cause; Y99.8 Other external cause status
CPT/HCPCS: 70360; 71045; 99284; U0003

== ENCOUNTER 2020-08-18 21:54 | Emergency (ER) | payer BC ==
[~2020-08-18] VITALS: Ht 190.5 cm; Wt 121.8 kg
--- NOTE | 2020-08-18 22:04 | PHYS DOC ---
Past Medical History Past Medical History: Anxiety, Asthma, Other Additional Past Medical Histor: LAINA Past Surgical History: Other Additional Past Surgical Histo: rhinoplasty Smoking Status: Never Smoker Alcohol Use: Occasionally Drug Use: None General Adult EDM: Chief Complaint: CHEST PAIN HPI: HPI: Patient is a 20 year old male who presents with 1 day history of burning moderate severity chest pain that is worse with eating and deep breaths. Patient says it radiates from the mid chest and to the upper abdomen. Patient denies any trouble breathing or nausea or vomiting. Patient had COVID-19 approximately 2 months ago. Patient denies any recent fevers chills or cough. Review of Systems: Review of Systems: Constitutional: Denies fever or chills. [] Eyes: Denies change in visual acuity. [] HENT: Denies nasal congestion or sore throat. [] Respiratory: Denies cough or shortness of breath. [] Cardiovascular: Complains of chest pain but no edema GI: As mild epigastric pain but no nausea, vomiting, bloody stools or diarrhea. [] : Denies dysuria. [] Musculoskeletal: Denies back pain or joint pain. [] Integument: Denies rash. [] Neurologic: Denies headache, focal weakness or sensory changes. [] Endocrine: Denies polyuria or polydipsia. [] Lymphatic: Denies swollen glands. [] Psychiatric: Denies depression or anxiety. [] Heart Score: HEART Score for Chest Pain: HEART Score for Chest Pain Response (Comments) Value History Slighlty/Non-Suspicious 0 ECG Normal 0 Age < 45 0 Troponin < Normal Limit 0 Total 0 Risk Factors: Risk Factors: DM, Current or recent (<one month) smoker, HTN, HLP, family history of CAD, obesity. Risk Scores: Score 0 - 3: 2.5% MACE over next 6 weeks - Discharge Home Score 4 - 6: 20.3% MACE over next 6 weeks - Admit for Clinical Observation Score 7 - 10: 72.7% MACE over next 6 weeks - Early Invasive Strategies Allergies: Allergies: Allergies Coded Allergies Type Severity Reaction Last Updated Verified Iodinated Contrast Media Allergy Severe Swelling 07/30/20 Yes latex Allergy Intermediate 07/30/20 Yes Physical Exam: PE: Constitutional: Well developed, well nourished, no acute distress, non-toxic appearance. [] HENT: Normocephalic, atraumatic, bilateral external ears normal, no trismus nose normal. [] Eyes: PERRLA, EOMI, conjunctiva normal, no discharge. [] Neck: Normal range of motion, no tenderness, supple, no stridor. [] Cardiovascular:Heart rate regular rhythm, peripheral pulses intact cap refill brisk Lungs & Thorax: Bilateral breath sounds clear, no respiratory distress Abdomen: soft, no tenderness, no masses, no pulsatile masses. [] Skin: Warm, dry, no erythema, no rash. [] Back: No tenderness, no CVA tenderness. [] Extremities: No tenderness, no cyanosis, no clubbing, ROM intact, no edema. [] Neurologic: Alert and oriented X 3, normal motor function, normal sensory function, no focal deficits noted. [] Psychologic: Affect normal, judgement normal, mood normal. [] Current Patient Data: Labs: Laboratory Tests Test 08/18/20 22:05 White Blood Count 9.6 x10^3/uL Red Blood Count 5.12 x10^6/uL Hemoglobin 14.8 g/dL Hematocrit 43.6 % Mean Corpuscular Volume 85 fL Mean Corpuscular Hemoglobin 29 pg Mean Corpuscular Hemoglobin Concent 34 g/dL Red Cell Distribution Width 13.5 % Platelet Count 302 x10^3/uL Neutrophils (%) (Auto) 64 % Lymphocytes (%) (Auto) 25 % Monocytes (%) (Auto) 8 % Eosinophils (%) (Auto) 2 % Basophils (%) (Auto) 1 % Neutrophils # (Auto) 6.2 x10^3/uL Lymphocytes # (Auto) 2.4 x10^3/uL Monocytes # (Auto) 0.8 x10^3/uL Eosinophils # (Auto) 0.2 x10^3/uL Basophils # (Auto) 0.1 x10^3/uL D-Dimer (Marysol) 0.43 ug/mlFEU Sodium Level 140 mmol/L Potassium Level 4.1 mmol/L Chloride Level 105 mmol/L Carbon Dioxide Level 29 mmol/L Anion Gap 6 Blood Urea Nitrogen 16 mg/dL Creatinine 1.4 mg/dL Estimated GFR (Cockcroft-Gault) 63.4 BUN/Creatinine Ratio 11 Glucose Level 87 mg/dL Calcium Level 9.5 mg/dL Total Bilirubin 0.3 mg/dL Aspartate Amino Transf (AST/SGOT) 24 U/L Alanine Aminotransferase (ALT/SGPT) 32 U/L Alkaline Phosphatase 79 U/L Troponin I Quantitative < 0.017 ng/mL Total Protein 7.9 g/dL Albumin 4.1 g/dL Albumin/Globulin Ratio 1.1 Lipase 76 U/L Current Medications Medications (Trade) Dose Ordered Sig/[place] Route PRN Reason Start Time Stop Time Status Last Admin Dose Admin Multi-Ingredient Mouthwash/Gargle (Gi Cocktail) 20 ml 1X ONCE SWSW 08/18/20 22:45 08/18/20 22:46 DC 08/18/20 22:52 Vital Signs: Vital Signs Date Time Temp Pulse Resp B/P (MAP) Pulse Ox O2 Delivery O2 Flow Rate FiO2 08/18/20 21:58 97.9 68 18 133/81 (98) 96 Room Air 97.9 EKG: EKG: EKG interpreted by me normal sinus rhythm with a rate of 72 right axis deviation normal intervals nonspecific ST changes [] Radiology/Procedures: Radiology/Procedures: [][facility] [address] [place] [address] IMAGING REPORT Signed PATIENT: ARINA DELVALLE ACCOUNT: [id number] : 2000 LOCATION: ER AGE: 20 SEX: M EXAM STATUS: REG ER ORD. PHYSICIAN: MANFRED NEAL MD REASON: CP PROCEDURE: PORTABLE CHEST 1V AP chest x-ray HISTORY: Chest pain. COMPARISON: Chest x-ray August 14, 2020. FINDINGS: Heart size normal. Mediastinal silhouette is normal. No pneumothorax, pulmonary opacities or pleural effusions. The bones are unremarkable. IMPRESSION: No acute process. Electronically signed by: Gee Melara MD (08/18/2020 11:42 PM) [facility] DICTATED and SIGNED BY: GEE MELARA MD DATE: 08/18/20 [id number] Course & Med Decision Making: Course & Med Decision Making Pertinent Labs and Imaging studies reviewed. (See chart for details) [] 20-year-old male who had COVID 2 months ago presents with chest pain that is burning in nature. After GI cocktail patient feels better. Patient's work-up is negative for acute coronary syndrome and pulmonary embolism as he has a negative d-dimer. I discussed with patient need for cardiac follow-up and will place him on a PPI as the symptoms sound very much like reflux but he will need to follow-up with cardiology to rule out myocarditis. Norberto Disclaimer: Norberto Disclaimer: This electronic medical record was generated, in whole or in part, using a voice recognition dictation system. Departure Departure Impression: Primary Impression: Chest pain Disposition: HOME, SELF-CARE Condition: STABLE Referrals: JEAN CLAUDE PABON APRN (PCP) MARIBEL ABDUL MD 2-3 days Patient Instructions: Chest Pain (Nonspecific) Additional Instructions: EMERGENCY DEPARTMENT GENERAL DISCHARGE INSTRUCTIONS THANK YOU for coming to [facility] Emergency Department (ED) today and trusting us with your care. We trust that you had a positive experience in our Emergency Department. If you wish to speak to the department Management you can contact the rehab department manager at . YOUR FOLLOW UP INSTRUCTIONS ARE FOLLOWS: Do you have a private doctor? If you do not have a private doctor, please ask for a resource list of physicians or clinics that may be able to assist you with follow up care. The Emergency Physician has interpreted your x-rays. The X-ray specialist will also review them. If there is a change in the findings you will be notified in 48 hours when at all possible. A lab test or lab culture may have been done, your results will be reviewed and you will be notified if you need a change in treatment. ADDITIONAL INSTRUCTIONS AND INFORMATION Your care today has been supervised by a physician who is specially trained in emergency care. Many problems require more than one evaluation for a complete diagnosis and treatment. We recommend that you schedule your follow up appointment as recommended to ensure complete treatment of your illness or injury. If you are unable to obtain follow up care and continue to have a problem, or if your condition worsens we recommend that you return to the ED. We are not able to safely determine your condition over the phone nor are we able to give sound medical advice over the phone. For these safety reasons, if you call for medical advice we will ask you to come to the ED for further evaluation If you have any questions regarding these discharge instructions please call the ED at . SAFETY INFORMATION In the interest of safety, wellness, and injury prevention; we encourage you to wear your seatbelt, if you smoke; quit smoking, and we encourage your family to use protective helmet for bicycling and other sporting events that present an increased risk for head injury. IF YOUR SYMPTOMS WORSEN OR NEW SYMPTOMS DEVELOP, OR YOU HAVE CONCERNS ABOUT YOUR CONDITION; OR IF YOUR CONDITION WORSENS WHILE YOU ARE WAITING FOR YOUR FOLLOW UP APPOINTMENT; EITHER CONTACT YOUR PRIMARY CARE DOCTOR, THE PHYSICIAN WHOSE NAME AND NUMBER YOU WERE GIVEN, OR RETURN TO THE ED IMMEDIATELY. Scripts Esomeprazole Magnesium (NEXIUM CAPSULE) 40 Mg Capsule.dr 1 CAP PO DAILY, #30 CAP 0 Refills Prov: MANFRED NEAL MD 08/18/20 MANFRED NEAL MD Aug 18, 2020 22:04
[2020-08-18 22:17] LABS: BASO # 0.1 x10^3/uL (0.0-0.2); BASO % 1 % (0-3); EOS # 0.2 x10^3/uL (0.0-0.7); EOS % 2 % (0-3); HEMATOCRIT 43.6 % (39.0-53.0); HEMOGLOBIN 14.8 g/dL (13.0-17.5); LYMPH # 2.4 x10^3/uL (1.0-4.8); LYMPH % 25 % (24-48); MEAN CORPUSCULAR HEMOGLOBIN 29 pg (25-35); MEAN CORPUSCULAR HGB CONC 34 g/dL (31-37); MEAN CORPUSCULAR VOLUME 85 fL (79-100); MONO # 0.8 x10^3/uL (0.0-1.1); MONO % 8 % (0-9); NEUT # 6.2 x10^3/uL (1.8-7.7); NEUT % 64 % (31-73); PLATELET COUNT 302 x10^3/uL (140-400); RED BLOOD COUNT 5.12 x10^6/uL (4.30-5.70); RED CELL DISTRIBUTION WIDTH 13.5 % (11.5-14.5); WHITE BLOOD COUNT 9.6 x10^3/uL (4.0-11.0)
[2020-08-18 22:26] LABS: CALCIUM 9.5 mg/dL (8.5-10.1); CREATININE 1.4 mg/dL (0.7-1.3); GFR 63.4; POTASSIUM 4.1 mmol/L (3.5-5.1)
[2020-08-18 22:32] LABS: ALBUMIN 4.1 g/dL (3.4-5.0); ALBUMIN/GLOBULIN RATIO 1.1 (1.0-1.7); TOTAL BILIRUBIN 0.3 mg/dL (0.2-1.0); TOTAL PROTEIN 7.9 g/dL (6.4-8.2)
[2020-08-18] MEDS ORDERED: LIDO:MAALOX 1:1 20 ML SINGLE DOSE. SWSW ONE (22:45)
--- NOTE | 2020-08-18 23:45 | RAD ---
AP chest x-ray HISTORY: Chest pain. COMPARISON: Chest x-ray August 14, 2020. FINDINGS: Heart size normal. Mediastinal silhouette is normal. No pneumothorax, pulmonary opacities or pleural effusions. The bones are unremarkable. IMPRESSION: No acute process. Electronically signed by: Jareth Melara MD (08/18/2020 11:42 PM) [facility] [place]
[2020-08-18] MEDS ORDERED: ESOM40CA PO (23:51)
[2020-08-18 23:59] VITALS: BP 118/74
--- NOTE | 2020-08-19 07:39 | EKG ---
[facility] [address] [place] [address] Test Date: 2020-08-18 Test Time: 21:58:48 Pat Name: ARINA DELVALLE Department: Room: Gender: M [employer] Supervisor: : 2000 Requested By: MANFRED NEAL Order Number: [id number] Reading MD: Measurements Intervals Normanna Rate: 72 P: IA: QRS: 121 QRSD: 92 T: 156 QT: 368 QTc: 404 Interpretive Statements IRREGULAR RHYTHM, NO P-WAVE FOUND ABNORMAL RIGHT AXIS DEVIATION T ABNORMALITY IN HIGH LATERAL LEADS ABNORMAL ECG RI6.01 No previous ECG available for comparison
== END 2020-08-19 | disposition home or self-care (01) ==
LOC: ER 21:54
DX: R07.89 Other chest pain (principal); R10.13 Epigastric pain; R20.8 Other disturbances of skin sensation; J45.909 Unspecified asthma, uncomplicated; F41.9 Anxiety disorder, unspecified; Z98.890 Other specified postprocedural states; Z90.89 Acquired absence of other organs; Z91.040 Latex allergy status; Z91.041 Radiographic dye allergy status
CPT/HCPCS: 36415; 71045; 80053; 83690; 84484; 85025; 85379; 93005; 99285

== ENCOUNTER 2020-08-21 19:55 | Emergency (ER) | payer BC ==
[~2020-08-21] VITALS: Ht 190.5 cm; Wt 122.3 kg
[~2020-08-21 19:55] MED LIST changes: +ESOM40CA PO
[2020-08-21 20:59] LABS: BILIRUBIN,URINE NEGATIVE (NEG); CLARITY,URINE CLEAR; COLOR,URINE YELLOW; NITRITE,URINE NEGATIVE (NEG); PH,URINE 5.5 (<5.0-8.0); PROTEIN,URINE NEGATIVE (NEG-TRACE)
[2020-08-21 21:04] LABS: BACTERIA,URINE 0 /HPF (0-FEW); RBC,URINE 0 /HPF (0-2); WBC,URINE OCC /HPF (0-4)
[2020-08-21 21:34] LABS: BASO # 0.1 x10^3/uL (0.0-0.2); BASO % 1 % (0-3); EOS # 0.2 x10^3/uL (0.0-0.7); EOS % 2 % (0-3); HEMATOCRIT 41.6 % (39.0-53.0); HEMOGLOBIN 14.2 g/dL (13.0-17.5); LYMPH # 1.8 x10^3/uL (1.0-4.8); LYMPH % 24 % (24-48); MEAN CORPUSCULAR HEMOGLOBIN 29 pg (25-35); MEAN CORPUSCULAR HGB CONC 34 g/dL (31-37); MEAN CORPUSCULAR VOLUME 86 fL (79-100); MONO # 0.6 x10^3/uL (0.0-1.1); MONO % 8 % (0-9); NEUT % 66 % (31-73); PLATELET COUNT 295 x10^3/uL (140-400); RED BLOOD COUNT 4.87 x10^6/uL (4.30-5.70); RED CELL DISTRIBUTION WIDTH 13.3 % (11.5-14.5); WHITE BLOOD COUNT 7.7 x10^3/uL (4.0-11.0)
[2020-08-21 21:35] VITALS: BP 128/77
[2020-08-21 21:42] LABS: CALCIUM 8.7 mg/dL (8.5-10.1); CREATININE 1.1 mg/dL (0.7-1.3); GFR 83.7
[2020-08-21 21:47] LABS: ALBUMIN 3.7 g/dL (3.4-5.0); ALBUMIN/GLOBULIN RATIO 1.1 (1.0-1.7); TOTAL BILIRUBIN 0.2 mg/dL (0.2-1.0); TOTAL PROTEIN 7.2 g/dL (6.4-8.2)
[2020-08-21] MEDS ORDERED: KETOROLAC 30 MG/ML VIAL. IVP ONE (22:15)
--- NOTE | 2020-08-21 22:19 | PHYS DOC ---
Past Medical History Past Medical History: Anxiety, Asthma, GERD, Other Additional Past Medical Histor: ASBERGERS Past Surgical History: Other Additional Past Surgical Histo: rhinoplasty Smoking Status: Never Smoker Alcohol Use: Occasionally Drug Use: None General Adult EDM: Chief Complaint: ABDOMINAL PAIN HPI: HPI: Patient is 20-year-old previously healthy male who presents to the emergency room complaining of a shooting burning pain in his right hip area. He has had this previously but typically goes away on its own. There are no associated symptoms. She denies any trauma. She does not have any hematuria, nausea, vomiting, diarrhea, constipation, fevers, and anorexia. Review of Systems: Review of Systems: Negative other than marked Heart Score: Risk Factors: Risk Factors: DM, Current or recent (<one month) smoker, HTN, HLP, family history of CAD, obesity. Risk Scores: Score 0 - 3: 2.5% MACE over next 6 weeks - Discharge Home Score 4 - 6: 20.3% MACE over next 6 weeks - Admit for Clinical Observation Score 7 - 10: 72.7% MACE over next 6 weeks - Early Invasive Strategies Allergies: Allergies: Allergies Coded Allergies Type Severity Reaction Last Updated Verified Iodinated Contrast Media Allergy Severe Swelling 07/30/20 Yes latex Allergy Intermediate 07/30/20 Yes Physical Exam: PE: General: Awake, alert, NAD. Well Nourished, well hydrated. Cooperative HEENT: Atraumatic, EOMI, PERRL, airway patent, moist oral mucosa Neck: Supple, trachea midline Respiratory: CTA bilaterally, normal effort, no wheezing/crackles CV: RRR, no murmur, cap refill <2 GI: Soft, nondistended, nontender, no masses MSK: No obvious deformities Skin: Warm, dry, intact Neuro: A&O x3, speech NL, sensory and motor grossly intact, no focal deficits Psych: Normal affect, normal mood, not suicidal or homicidal Current Patient Data: Labs: Laboratory Tests Test 08/21/20 20:10 08/21/20 21:20 Urine Collection Type Unknown Urine Color Yellow Urine Clarity Clear Urine pH 5.5 (<5.0-8.0) Urine Specific Alden >=1.030 (1.000-1.030) Urine Protein Negative mg/dL (NEG-TRACE) Urine Glucose (UA) Negative mg/dL (NEG) Urine Ketones (Stick) Trace mg/dL (NEG) Urine Blood Negative (NEG) Urine Nitrite Negative (NEG) Urine Bilirubin Negative (NEG) Urine Urobilinogen Dipstick 1.0 mg/dL (0.2 mg/dL) Urine Leukocyte Esterase Negative (NEG) Urine RBC 0 /HPF (0-2) Urine WBC Occ /HPF (0-4) Urine Squamous Epithelial Cells Few /LPF Urine Bacteria 0 /HPF (0-FEW) Urine Mucus Mod /LPF White Blood Count 7.7 x10^3/uL (4.0-11.0) Red Blood Count 4.87 x10^6/uL (4.30-5.70) Hemoglobin 14.2 g/dL (13.0-17.5) Hematocrit 41.6 % (39.0-53.0) Mean Corpuscular Volume 86 fL (79-100) Mean Corpuscular Hemoglobin 29 pg (25-35) Mean Corpuscular Hemoglobin Concent 34 g/dL (31-37) Red Cell Distribution Width 13.3 % (11.5-14.5) Platelet Count 295 x10^3/uL (140-400) Neutrophils (%) (Auto) 66 % (31-73) Lymphocytes (%) (Auto) 24 % (24-48) Monocytes (%) (Auto) 8 % (0-9) Eosinophils (%) (Auto) 2 % (0-3) Basophils (%) (Auto) 1 % (0-3) Neutrophils # (Auto) 5.0 x10^3/uL (1.8-7.7) Lymphocytes # (Auto) 1.8 x10^3/uL (1.0-4.8) Monocytes # (Auto) 0.6 x10^3/uL (0.0-1.1) Eosinophils # (Auto) 0.2 x10^3/uL (0.0-0.7) Basophils # (Auto) 0.1 x10^3/uL (0.0-0.2) Sodium Level 141 mmol/L (136-145) Potassium Level 4.0 mmol/L (3.5-5.1) Chloride Level 104 mmol/L (98-107) Carbon Dioxide Level 30 mmol/L (21-32) Anion Gap 7 (6-14) Blood Urea Nitrogen 12 mg/dL (8-26) Creatinine 1.1 mg/dL (0.7-1.3) Estimated GFR (Cockcroft-Gault) 83.7 BUN/Creatinine Ratio 11 (6-20) Glucose Level 109 mg/dL (70-99) H Calcium Level 8.7 mg/dL (8.5-10.1) Total Bilirubin 0.2 mg/dL (0.2-1.0) Aspartate Amino Transferase (AST) 21 U/L (15-37) Alanine Aminotransferase (ALT) 27 U/L (16-63) Alkaline Phosphatase 72 U/L (46-116) Total Protein 7.2 g/dL (6.4-8.2) Albumin 3.7 g/dL (3.4-5.0) Albumin/Globulin Ratio 1.1 (1.0-1.7) Laboratory Tests 08/21/20 21:20 Laboratory Tests 08/21/20 21:20 Vital Signs: Vital Signs Date Time Temp Pulse Resp B/P (MAP) Pulse Ox O2 Delivery O2 Flow Rate FiO2 08/21/20 21:35 62 128/77 (94) 96 Room Air 08/21/20 20:06 97.7 20 97.7 EKG: EKG: [] Radiology/Procedures: Radiology/Procedures: [] Course & Med Decision Making: Course & Med Decision Making Pertinent Labs and Imaging studies reviewed. (See chart for details) Patient is a 20-year-old previously healthy male who presents to the emergency room after developing a burning pain in his right hip. Patient has a benign abdominal exam. Abdominal labs are normal. He does not have a white blood cell count. At this time it does not appear that he is a kidney stone or appendicitis. We will give him Toradol. We discussed symptoms of appendicitis and kidney stones. Patient's test results and vitals while in the ED were fully reviewed and discussed with the patient. Patient is stable and at this time does not need admission to the hospital. We have discussed strict return precautions and the importance of following up with their Primary Care Physici an. Patient stated understanding and was given an opportunity to ask any questions. Patient is in agreement with plan. Francescoon Disclaimer: Norberto Disclaimer: This electronic medical record was generated, in whole or in part, using a voice recognition dictation system. Departure Departure Impression: Primary Impression: Muscle strain Disposition: HOME, SELF-CARE Condition: STABLE Referrals: JEAN CLAUDE PABON APRN (PCP) Patient Instructions: Muscle Strain MARGARITO MERLOS MD Aug 21, 2020 22:18
== END 2020-08-21 23:33 | disposition home or self-care (01) ==
LOC: ER 19:55
DX: S76.011A Strain of muscle, fascia and tendon of right hip, initial encounter (principal); J45.909 Unspecified asthma, uncomplicated; K21.9 Gastro-esophageal reflux disease without esophagitis; Z91.040 Latex allergy status; Z91.041 Radiographic dye allergy status; X58.XXXA Exposure to other specified factors, initial encounter; Y93.89 Activity, other specified; Y92.89 Other specified places as the place of occurrence of the external cause; Y99.8 Other external cause status
CPT/HCPCS: 36415; 80053; 81001; 85025; 96374; 99283; J1885

== ENCOUNTER 2020-08-28 22:04 | Emergency (ER) | payer BC ==
[~2020-08-28] VITALS: Ht 190.5 cm; Wt 118.2 kg
--- NOTE | 2020-08-28 23:07 | RAD ---
CHEST AP ONLY History: Reason: chest pain / Spl. Instructions: / History: Comparison: August 18, 2020 Findings: No consolidation or pleural effusion. Normal heart size. No pneumothorax. Impression: 1. No acute cardiopulmonary process. Electronically signed by: Mumtaz Argueta DO (08/28/2020 11:04 PM) [facility]
[2020-08-28 23:11] LABS: BASO # 0.1 x10^3/uL (0.0-0.2); BASO % 1 % (0-3); EOS # 0.2 x10^3/uL (0.0-0.7); EOS % 2 % (0-3); HEMATOCRIT 44.3 % (39.0-53.0); LYMPH # 1.8 x10^3/uL (1.0-4.8); LYMPH % 24 % (24-48); MEAN CORPUSCULAR HEMOGLOBIN 29 pg (25-35); MEAN CORPUSCULAR HGB CONC 34 g/dL (31-37); MEAN CORPUSCULAR VOLUME 85 fL (79-100); MONO # 0.7 x10^3/uL (0.0-1.1); MONO % 9 % (0-9); NEUT # 4.9 x10^3/uL (1.8-7.7); NEUT % 64 % (31-73); PLATELET COUNT 298 x10^3/uL (140-400); RED BLOOD COUNT 5.21 x10^6/uL (4.30-5.70); RED CELL DISTRIBUTION WIDTH 13.5 % (11.5-14.5); WHITE BLOOD COUNT 7.7 x10^3/uL (4.0-11.0)
[2020-08-28 23:18] LABS: CALCIUM 9.5 mg/dL (8.5-10.1); CREATININE 1.2 mg/dL (0.7-1.3); GFR 75.7; POTASSIUM 4.1 mmol/L (3.5-5.1)
[2020-08-28 23:24] LABS: ALBUMIN 4.2 g/dL (3.4-5.0); ALBUMIN/GLOBULIN RATIO 1.1 (1.0-1.7); MAGNESIUM 2.3 mg/dL (1.8-2.4); TOTAL BILIRUBIN 0.3 mg/dL (0.2-1.0); TOTAL PROTEIN 7.9 g/dL (6.4-8.2)
--- NOTE | 2020-08-28 23:27 | PHYS DOC ---
Past Medical History Past Medical History: Anxiety, Asthma, GERD, Other Additional Past Medical Histor: LAINA Past Surgical History: Other Additional Past Surgical Histo: rhinoplasty Smoking Status: Never Smoker Alcohol Use: Occasionally Drug Use: None General Adult EDM: Chief Complaint: CHEST PAIN HPI: HPI: Patient is a 20 year old male who presented to ER with substernal chest pain associated with some dizziness started at noon today. Patient denies any cough or fever. Patient was evaluated here numerous times recently for the same complaint. Patient was diagnosed with COVID-19 infection in May of this year. Patient denies any recent travel, no recent operation. Patient has no family history of coronary disease. Review of Systems: Review of Systems: Constitutional: Denies fever or chills. [] Eyes: Denies change in visual acuity. [] HENT: Denies nasal congestion or sore throat. [] Respiratory: Denies cough or shortness of breath. [] Cardiovascular: Denies chest pain or edema. [] GI: Denies abdominal pain, nausea, vomiting, bloody stools or diarrhea. [] : Denies dysuria. [] Musculoskeletal: Denies back pain or joint pain. [] Integument: Denies rash. [] Neurologic: Denies headache, focal weakness or sensory changes. [] Endocrine: Denies polyuria or polydipsia. [] Lymphatic: Denies swollen glands. [] Psychiatric: Denies depression or anxiety. [] Heart Score: HEART Score for Chest Pain: HEART Score for Chest Pain Response (Comments) Value History Slighlty/Non-Suspicious 0 ECG Normal 0 Age < 45 0 Risk Factors No Risk Factors 0 Troponin < Normal Limit 0 Total 0 Risk Factors: Risk Factors: DM, Current or recent (<one month) smoker, HTN, HLP, family history of CAD, obesity. Risk Scores: Score 0 - 3: 2.5% MACE over next 6 weeks - Discharge Home Score 4 - 6: 20.3% MACE over next 6 weeks - Admit for Clinical Observation Score 7 - 10: 72.7% MACE over next 6 weeks - Early Invasive Strategies Current Medications: Current Medications Medications (Trade) Dose Ordered Sig/Glenna Start Time Stop Time Status Last Admin Dose Admin Famotidine (Pepcid Vial) 20 mg 1X ONCE 08/28/20 23:30 08/28/20 23:31 08/28/20 23:06 20 MG Allergies: Allergies: Allergies Coded Allergies Type Severity Reaction Last Updated Verified Iodinated Contrast Media Allergy Severe Swelling 07/30/20 Yes latex Allergy Intermediate 07/30/20 Yes Physical Exam: PE: Constitutional: Well developed, well nourished, no acute distress, non-toxic appearance. [] HENT: Normocephalic, atraumatic, bilateral external ears normal, oropharynx moist, no oral exudates, nose normal. [] Eyes: PERRLA, EOMI, conjunctiva normal, no discharge. [] Neck: Normal range of motion, no tenderness, supple, no stridor. [] Cardiovascular:Heart rate regular rhythm, no murmur [] Lungs & Thorax: Bilateral breath sounds clear to auscultation [] Abdomen: Bowel sounds normal, soft, no tenderness, no masses, no pulsatile masses. [] Skin: Warm, dry, no erythema, no rash. [] Back: No tenderness, no CVA tenderness. [] Extremities: No tenderness, no cyanosis, no clubbing, ROM intact, no edema. [] Neurologic: Alert and oriented X 3, normal motor function, normal sensory function, no focal deficits noted. [] Psychologic: Affect normal, judgement normal, mood normal. [] Current Patient Data: Labs: Laboratory Tests Test 08/28/20 22:19 White Blood Count 7.7 x10^3/uL (4.0-11.0) Red Blood Count 5.21 x10^6/uL (4.30-5.70) Hemoglobin 15.0 g/dL (13.0-17.5) Hematocrit 44.3 % (39.0-53.0) Mean Corpuscular Volume 85 fL (79-100) Mean Corpuscular Hemoglobin 29 pg (25-35) Mean Corpuscular Hemoglobin Concent 34 g/dL (31-37) Red Cell Distribution Width 13.5 % (11.5-14.5) Platelet Count 298 x10^3/uL (140-400) Neutrophils (%) (Auto) 64 % (31-73) Lymphocytes (%) (Auto) 24 % (24-48) Monocytes (%) (Auto) 9 % (0-9) Eosinophils (%) (Auto) 2 % (0-3) Basophils (%) (Auto) 1 % (0-3) Neutrophils # (Auto) 4.9 x10^3/uL (1.8-7.7) Lymphocytes # (Auto) 1.8 x10^3/uL (1.0-4.8) Monocytes # (Auto) 0.7 x10^3/uL (0.0-1.1) Eosinophils # (Auto) 0.2 x10^3/uL (0.0-0.7) Basophils # (Auto) 0.1 x10^3/uL (0.0-0.2) D-Dimer (Marysol) < 0.27 ug/mlFEU Sodium Level 139 mmol/L (136-145) Potassium Level 4.1 mmol/L (3.5-5.1) Chloride Level 104 mmol/L (98-107) Carbon Dioxide Level 30 mmol/L (21-32) Anion Gap 5 (6-14) L Blood Urea Nitrogen 12 mg/dL (8-26) Creatinine 1.2 mg/dL (0.7-1.3) Estimated GFR (Cockcroft-Gault) 75.7 BUN/Creatinine Ratio 10 (6-20) Glucose Level 97 mg/dL (70-99) Calcium Level 9.5 mg/dL (8.5-10.1) Magnesium Level 2.3 mg/dL (1.8-2.4) Total Bilirubin 0.3 mg/dL (0.2-1.0) Aspartate Amino Transferase (AST) 21 U/L (15-37) Alanine Aminotransferase (ALT) 28 U/L (16-63) Alkaline Phosphatase 79 U/L (46-116) Total Protein 7.9 g/dL (6.4-8.2) Albumin 4.2 g/dL (3.4-5.0) Albumin/Globulin Ratio 1.1 (1.0-1.7) Laboratory Tests 08/28/20 22:19 Laboratory Tests 08/28/20 22:19 Vital Signs: Vital Signs Date Time Temp Pulse Resp B/P (MAP) Pulse Ox O2 Delivery O2 Flow Rate FiO2 08/28/20 22:10 97.7 70 14 146/85 (105) 99 Room Air 97.7 EKG: EKG: EKG was done at 2211, heart rate of 64 beats per minutes, normal sinus rhythm, no ST evaluation. Radiology/Procedures: Radiology/Procedures: [facility] [address] [place] [address] IMAGING REPORT Signed PATIENT: ARINA DELVALLE ACCOUNT: [id number] : 2000 LOCATION: ER AGE: 20 SEX: M EXAM STATUS: REG ER ORD. PHYSICIAN: MASOUD REDDY DO REASON: chest pain PROCEDURE: CHEST AP ONLY CHEST AP ONLY History: Reason: chest pain / Spl. Instructions: / History: Comparison: August 18, 2020 Findings: No consolidation or pleural effusion. Normal heart size. No pneumothorax. Impression: 1. No acute cardiopulmonary process. Electronically signed by: Mumtaz Argueta DO (08/28/2020 11:04 PM) [facility] DICTATED and SIGNED BY: MUMTAZ ARGUETA DO DATE: 08/28/202303 Course & Med Decision Making: Course & Med Decision Making Pertinent Labs and Imaging studies reviewed. (See chart for details) Patient is a 20-year-old male who presented to ER with substernal chest pain started at noon today. Patient had been evaluated here multiple times this year for the same complaint. Work-up in ER included chest x-ray and EKG did not show any acute problem. Patient will be discharged home. Dragon Disclaimer: Dragqiana Disclaimer: This electronic medical record was generated, in whole or in part, using a voice recognition dictation system. Departure Departure Impression: Primary Impression: Chest pain Disposition: 01 DC HOME SELF CARE/HOMELESS Condition: STABLE Referrals: JEAN CLAUDE PABON APRN (PCP) Follow-up with your family doctor this week for reevaluation. Patient Instructions: Chest Pain (Nonspecific) Additional Instructions: Thank you for visiting our Emergency Department. We appreciate you trusting us with your care. If any additional problems come up don't hesitate to return to visit us. Please follow up with your primary care provider so they can plan additional care if needed and know about the problem that you had. If symptoms worsen come back to the Emergency Department. Any concerning symptoms that start such as chest pain, shortness of air, weakness or numbness on one side of the body, running high fevers or any other concerning symptoms return to the ER. MASOUD REDDY DO Aug 28, 2020 23:27
[2020-08-28] MEDS ORDERED: FAMOTIDINE 20 MG/2 ML VIAL IVP ONE (23:30)
[2020-08-28 23:54] VITALS: BP 136/75
== END 2020-08-29 00:01 | disposition home or self-care (01) ==
LOC: ER 22:04
DX: R07.2 Precordial pain (principal); R42 Dizziness and giddiness; K21.9 Gastro-esophageal reflux disease without esophagitis; J45.909 Unspecified asthma, uncomplicated; F41.9 Anxiety disorder, unspecified; Z91.040 Latex allergy status; Z91.041 Radiographic dye allergy status
CPT/HCPCS: 36415; 71045; 80053; 83735; 84484; 85025; 85379; 96374; 99285; J3490

== ENCOUNTER 2020-09-04 19:53 | Emergency (ER) | payer BC ==
[~2020-09-04] VITALS: Ht 190.5 cm; Wt 118.1 kg
[2020-09-04] MEDS ORDERED: DEXAMETHASONE 4 MG TABLET PO ONE (20:45)
[2020-09-04] MEDS ORDERED: LIDO:MAALOX 1:1 20 ML SINGLE DOSE. PO ONE (20:45)
--- NOTE | 2020-09-04 20:59 | PHYS DOC ---
Past Medical History Past Medical History: Anxiety, Asthma, GERD, Other Additional Past Medical Histor: ASBERGERS, eczema Past Surgical History: Other Additional Past Surgical Histo: rhinoplasty Smoking Status: Never Smoker Alcohol Use: Occasionally (3-4x beer every other week) Drug Use: None Social History Works at [employer] EDM: Chief Complaint: SHORTNESS OF BREATH HPI: HPI: Patient is a 20 year old Male who presents with shortness of breath following aspirating "room temp coffee" this AM (0600). He reports coughing up some fluid and having some epigastric pain. He reports having left sided chest pain an hour afterwards. The pain is constant, burning in quality, and 4/10. He states that his shortness of breath comes and goes. He reports some sore throat. He has not had anything like this before. Patient reports taking aspirin 81mg and 2 puffs of albuterol at 1930 before coming to ED. He took omeprazole during the afternoon with no relief in symptoms. He denies any aggravating factors with food ingestion. Review of Systems: Review of Systems: Constitutional: Denies fever or chills Eyes: Denies redness or eye pain HENT: Admits nasal congestion and sore throat Respiratory: Admits cough and shortness of breath Cardiovascular: Admits chest pain. Denies palpitations GI: Admits nausea. Denies abdominal pain, constipation, diarrhea, or vomiting : Denies dysuria or hematuria Musculoskeletal: Denies back pain or joint pain Integument: Denies rash or skin lesions Neurologic: Denies headache, focal weakness or sensory changes Complete systems were reviewed and found to be within normal limits, except as documented in this note. Heart Score: HEART Score for Chest Pain: HEART Score for Chest Pain Response (Comments) Value History Slighlty/Non-Suspicious 0 ECG Normal 0 Age < 45 0 Risk Factors No Risk Factors 0 Total 0 Family History: Family History: Denies any family history of colon cancer, heart disease or lung disease. Current Medications: Current Medications Medications (Trade) Dose Ordered Sig/Glenna Start Time Stop Time Status Last Admin Dose Admin Dexamethasone (Decadron) 10 mg 1X ONCE 09/04/20 20:45 09/04/20 20:46 Multi-Ingredient Mouthwash/Gargle (Gi Cocktail) 20 ml 1X ONCE 09/04/20 20:45 09/04/20 20:46 UNV Allergies: Allergies: Allergies Coded Allergies Type Severity Reaction Last Updated Verified Iodinated Contrast Media Allergy Severe Swelling 07/30/20 Yes latex Allergy Intermediate 07/30/20 Yes Physical Exam: PE: Constitutional: Well developed, well nourished, no acute distress, non-toxic appearance HENT: Normocephalic, atraumatic Eyes: Conjunctiva normal, no discharge Neck: Normal range of motion, no tenderness, supple Lungs & Thorax: No respiratory distress, equal chest rise and fall Abdomen: Soft, no tenderness, no guarding/rebound tenderness/distention Skin: Warm, dry, no erythema, no rash Extremities: No tenderness, ROM intact, no edema Neurologic: Alert and oriented X 3, normal motor function, normal sensory function, no focal deficits noted Psychologic: Affect anxious, judgment normal Current Patient Data: Vital Signs: Vital Signs Date Time Temp Pulse Resp B/P (MAP) Pulse Ox O2 Delivery O2 Flow Rate FiO2 09/04/20 19:55 97.9 94 18 136/81 (99) 97 Room Air 97.9 EKG: EKG: @2023 NSR at 64bpm, NO ST elevation, QRS 94ms, QT/QTc 376/392ms Radiology/Procedures: Radiology/Procedures: PROCEDURE: CHEST PA & LATERAL INDICATION: Reason: chest pain / Spl. Instructions: / History: COMPARISON: August 28, 2020 FINDINGS: 2 view of chest obtained. No focal airspace consolidation or pulmonary edema. Cardiac silhouette is similar to prior. IMPRESSION: * No focal airspace consolidation or edema. Electronically signed by: Zana Stephen MD (09/04/2020 9:02 PM) [id number] Course & Med Decision Making: Course & Med Decision Making Mr. Barnes is a 20yo white male who presented with shortness of breath following aspiration of "room temperature coffee" this AM. Shortness of breath is intermittent but complains of left sided chest pain one hour after the event that is constant and burning. Pain is rated at 4/10 without aggravating factors. He has taken omeprazole, aspirin 81mcg, and albuterol 2puffs prior to his ED visit. Patient was seen in bed not in acute distress. A chest x-ray and EKG were performed which did not show any pertinent findings. He was given dexamethasone and a GI cocktail, with interval improvement of symptoms. Patient stable for discharge with outpatient follow-up with PCP. Discussed findings and plan with patient, who acknowledges understanding and agreement. Norberto Disclaimer: Norberto Disclaimer: This electronic medical record was generated, in whole or in part, using a voice recognition dictation system. Departure Departure Impression: Primary Impression: Aspiration pneumonitis Disposition: DC HOME SELF CARE/HOMELESS Condition: STABLE Referrals: JEAN CLAUDE PABON APRN (PCP) Patient Instructions: Pneumonitis Scripts Prednisone (PREDNISONE) 20 Mg Tablet 2 TAB PO DAILY, #8 TAB Start this prescription tomorrow, Thursday09/05/2020 Prov: BRADLEY AGUAYO DO 09/04/20 PERC Rule for PE PERC Rule for PE PERC Rule for PE Response (Comments) Value Age > 50: No 0 HR > 100: No 0 Sa02 on room air <95%: No 0 Unilateral leg swelling: No 0 Hemoptysis: No 0 Recent surgery or trauma: No 0 Prior PE or DVT: No 0 Hormone use: No 0 Total 0 BRADLEY AGUAYO DO Sep 04, 2020 20:59
[2020-09-04] MEDS ORDERED: PRED20TA PO (21:03)
--- NOTE | 2020-09-04 21:06 | RAD ---
INDICATION: Reason: chest pain / Spl. Instructions: / History: COMPARISON: August 28, 2020 FINDINGS: 2 view of chest obtained. No focal airspace consolidation or pulmonary edema. Cardiac silhouette is similar to prior. IMPRESSION: * No focal airspace consolidation or edema. Electronically signed by: Zana Stephen MD (09/04/2020 9:02 PM) [id number]
[2020-09-04 21:16] VITALS: BP 130/91
--- NOTE | 2020-09-05 11:53 | EKG ---
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
== END 2020-09-04 21:16 | disposition home or self-care (01) ==
LOC: ER 19:53
DX: J69.0 Pneumonitis due to inhalation of food and vomit (principal); J45.909 Unspecified asthma, uncomplicated; K21.9 Gastro-esophageal reflux disease without esophagitis; Z91.040 Latex allergy status; Z91.041 Radiographic dye allergy status
CPT/HCPCS: 71046; 93005; 99285

== ENCOUNTER 2020-09-14 02:15 | Emergency (ER) | payer BC ==
[~2020-09-14] VITALS: Ht 190.5 cm; Wt 118.0 kg
[~2020-09-14 02:15] MED LIST changes: +PRED20TA PO
[2020-09-14 02:17] VITALS: BP 211/95
--- NOTE | 2020-09-14 02:44 | PHYS DOC ---
Past Medical History Past Medical History: Anxiety, Asthma, GERD, Other Additional Past Medical Histor: ASBERGERS, eczema Past Surgical History: Other Additional Past Surgical Histo: rhinoplasty Smoking Status: Never Smoker Alcohol Use: Occasionally Drug Use: None General Adult EDM: Chief Complaint: MULTIPLE COMPLAINTS HPI: HPI: Patient is a 20 year old male presents for evaluation of a sore throat. Patient states around 2200 hrs. he was playing videogames at some chest discomfort with some radiation down his left arm. States he took 2 baby aspirin second baby aspirin feels like it he swallowed it wrong and got stuck in his throat. Despite this patient states he went to sleep he woke up just prior to arrival with a sensation of his throat swelling. Patient denies any chest pain at this time. His oral airway is intact he is not salivating he is handling his own secretions and there is no stridor. Patients lungs are clear and he is in no acute distress. Review of Systems: Review of Systems: Constitutional: Denies fever or chills. [] Eyes: Denies change in visual acuity. [] HENT: Denies nasal congestion or sore throat. [] Respiratory: Denies cough or shortness of breath. [] Cardiovascular: Denies chest pain or edema. [] GI: Denies abdominal pain, nausea, vomiting, bloody stools or diarrhea. [] : Denies dysuria. [] Musculoskeletal: Denies back pain or joint pain. [] Integument: Denies rash. [] Neurologic: Denies headache, focal weakness or sensory changes. [] Endocrine: Denies polyuria or polydipsia. [] Lymphatic: Denies swollen glands. [] Psychiatric: Denies depression or anxiety. [] Heart Score: Risk Factors: Risk Factors: DM, Current or recent (<one month) smoker, HTN, HLP, family history of CAD, obesity. Risk Scores: Score 0 - 3: 2.5% MACE over next 6 weeks - Discharge Home Score 4 - 6: 20.3% MACE over next 6 weeks - Admit for Clinical Observation Score 7 - 10: 72.7% MACE over next 6 weeks - Early Invasive Strategies Current Medications: Current Medications Medications (Trade) Dose Ordered Sig/Glenna Start Time Stop Time Status Last Admin Dose Admin Multi-Ingredient Mouthwash/Gargle (Gi Cocktail) 20 ml 1X ONCE 09/14/20 02:45 09/14/20 02:46 Allergies: Allergies: Allergies Coded Allergies Type Severity Reaction Last Updated Verified Iodinated Contrast Media Allergy Severe Swelling 07/30/20 Yes latex Allergy Intermediate 07/30/20 Yes Physical Exam: PE: Constitutional: Well developed, well nourished, no acute distress, non-toxic appearance. [] HENT: Normocephalic, atraumatic, bilateral external ears normal, oropharynx moist, no oral exudates, nose normal. [] Eyes: PERRLA, EOMI, conjunctiva normal, no discharge. [] Neck: Normal range of motion, no tenderness, supple, no stridor. [] Cardiovascular:Heart rate regular rhythm, no murmur [] Lungs & Thorax: Bilateral breath sounds clear to auscultation [] Abdomen: Bowel sounds normal, soft, no tenderness, no masses, no pulsatile masses. [] Skin: Warm, dry, no erythema, no rash. [] Back: No tenderness, no CVA tenderness. [] Extremities: No tenderness, no cyanosis, no clubbing, ROM intact, no edema. [] Neurologic: Alert and oriented X 3, normal motor function, normal sensory function, no focal deficits noted. [] Psychologic: Affect normal, judgement normal, mood normal. [] EKG: EKG: EKG at 258 heart rate 78 normal sinus rhythm no acute [place] [] Radiology/Procedures: Radiology/Procedures: [] Course & Med Decision Making: Course & Med Decision Making Pertinent Labs and Imaging studies reviewed. (See chart for details) [] EKG performed no acute abnormalities. Patient was treated with GI cocktail. Patient discharged home with instruction to follow-up with his primary care physician. Norberto Disclaimer: Norberto Disclaimer: This electronic medical record was generated, in whole or in part, using a voice recognition dictation system. Departure Departure Impression: Primary Impression: Throat discomfort Additional Impression: Chest pain Disposition: 01 DC HOME SELF CARE/HOMELESS Condition: STABLE Referrals: JEAN CLAUDE PABON APRN (PCP) Patient Instructions: Sore Throat JONATHAN VIDAL DO Sep 14, 2020 02:44
[2020-09-14] MEDS ORDERED: LIDO:MAALOX 1:1 20 ML SINGLE DOSE. SWSW ONE (02:45)
--- NOTE | 2020-09-14 12:43 | EKG ---
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
== END 2020-09-14 03:19 | disposition home or self-care (01) ==
LOC: ER 02:15
DX: J02.9 Acute pharyngitis, unspecified (principal); R07.89 Other chest pain; R20.2 Paresthesia of skin; F41.9 Anxiety disorder, unspecified; J45.909 Unspecified asthma, uncomplicated; K21.9 Gastro-esophageal reflux disease without esophagitis; Z98.890 Other specified postprocedural states; Z91.040 Latex allergy status
CPT/HCPCS: 93005; 99283

== ENCOUNTER 2020-09-30 01:54 | Emergency (ER) | payer BC ==
[~2020-09-30] VITALS: Ht 190.5 cm; Wt 118.2 kg
[2020-09-30 02:01] VITALS: BP 130/78
[2020-09-30] MEDS ORDERED: FEXO60TA25 PO (02:22)
--- NOTE | 2020-09-30 02:23 | PHYS DOC ---
Past Medical History Past Medical History: Anxiety, Asthma, GERD, Other Additional Past Medical Histor: ASBERGERS, eczema Past Surgical History: Other Additional Past Surgical Histo: rhinoplasty Smoking Status: Never Smoker Alcohol Use: Occasionally Drug Use: None General Adult EDM: Chief Complaint: EYE PROBLEMS HPI: HPI: History obtained from patient. Patient is a 18-year-old male with history of environmental allergies who presents with a complaint of left eyelid swelling. He states he noted some left eyelid swelling approximately 1 hour ago. He states he did take oral Benadryl. He states that is helped some. He states he has felt as though the upper eyelid on the left was slightly swollen. He states he did note some mild surrounding redness. Is any discharge from the eye. Denies any eye trauma. Denies any eye pain. Denies any periorbital pain or headache. Denies vomiting. Denies history of using contact lenses or glasses. Denies any vision changes. Denies any recent eye procedures. States that he thinks the symptoms may be related to seasonal allergies. No other complaints. Review of Systems: Review of Systems: Constitutional: Denies fever or chills. [] Eyes: Positive for eyelid swelling HENT: Denies nasal congestion or sore throat. [] Respiratory: Denies cough or shortness of breath. [] Cardiovascular: Denies chest pain or edema. [] GI: Denies abdominal pain, nausea, vomiting, bloody stools or diarrhea. [] : Denies dysuria. [] Musculoskeletal: Denies back pain or joint pain. [] Integument: Denies rash. [] Neurologic: Denies headache, focal weakness or sensory changes. [] Endocrine: Denies polyuria or polydipsia. [] Lymphatic: Denies swollen glands. [] Psychiatric: Denies depression or anxiety. [] Heart Score: Risk Factors: Risk Factors: DM, Current or recent (<one month) smoker, HTN, HLP, family history of CAD, obesity. Risk Scores: Score 0 - 3: 2.5% MACE over next 6 weeks - Discharge Home Score 4 - 6: 20.3% MACE over next 6 weeks - Admit for Clinical Observation Score 7 - 10: 72.7% MACE over next 6 weeks - Early Invasive Strategies Allergies: Allergies: Allergies Coded Allergies Type Severity Reaction Last Updated Verified Iodinated Contrast Media Allergy Severe Swelling 07/30/20 Yes latex Allergy Intermediate 07/30/20 Yes Physical Exam: PE: Constitutional: Well developed, well nourished, no acute distress, non-toxic appearance. [] HENT: Normocephalic, atraumatic, bilateral external ears normal, oropharynx moist, no oral exudates, nose normal. [] EYES: 20/20 OD 20/15 OS 20/20 OU. There are no visual field deficits. Pupil OD: 4 to 2 OS 4 to 2 mm briskly reactive with no APD present, ERRLA. OS ophthalmic exam: The periorbital region has no erythema or edema. There is no bony tenderness of the bone(s) of the orbital rim. There is no proptosis. There is no blepharedema. The margins of the eyelid are intact without lacerations. The lacrimal system appears intact. EOMI without evidence of entrapment. Cornea is clear without hyphema or hypopyon. Conjunctiva are not injected. There is no subconjunctival hemorrhage. Sclera intact without laceration. No foreign bodies identified. Neck: Normal range of motion, no tenderness, supple, no stridor. [] Cardiovascular:Heart rate regular rhythm, no murmur [] Lungs & Thorax: Bilateral breath sounds clear to auscultation [] Abdomen: soft, no tenderness, no masses, no pulsatile masses. [] Skin: Warm, dry, no erythema, no rash. [] Back: No tenderness, no CVA tenderness. [] Extremities: No tenderness, no cyanosis, no clubbing, ROM intact, no edema. [] Neurologic: Alert and oriented X 3, normal motor function, normal sensory function, no focal deficits noted. [] Psychologic: Affect normal, judgement normal, mood normal. [] Current Patient Data: Vital Signs: Vital Signs Date Time Temp Pulse Resp B/P (MAP) Pulse Ox O2 Delivery O2 Flow Rate FiO2 09/30/20 02:01 97.1 88 16 130/78 (95) 97 Room Air 97.1 EKG: EKG: [] Radiology/Procedures: Radiology/Procedures: [] Course & Med Decision Making: Course & Med Decision Making Pertinent Labs and Imaging studies reviewed. (See chart for details) [] Patient is a well-appearing 20-year-old male who presents with chief complaint of left eyelid swelling. This vital signs normal. Visual acuity remainder by exam unremarkable. No signs of acute infectious etiology. Patient symptoms may be related to environmental allergens. Minimal swelling appreciated at this time. I do feel is reasonable to discharge patient home. Antibiotics were deferred as there are no signs of bacterial infection. He will be given a prescription of Astrid and was encouraged to use Benadryl warm compresses at home. Continues to deny any pain or vision changes. Return precautions discussed and understood. Stable for discharge. Dragon Disclaimer: Norberto Disclaimer: This electronic medical record was generated, in whole or in part, using a voice recognition dictation system. Departure Departure Impression: Primary Impression: Blepharitis of left eye Qualified Codes: H01.004 - Unspecified blepharitis left upper eyelid Disposition: 01 DC HOME SELF CARE/HOMELESS Condition: STABLE Referrals: JEAN CLAUDE PABON APRN (PCP) Patient Instructions: Blepharitis Scripts Fexofenadine Hcl (ASTRID ALLERGY) 60 Mg Tablet 1 TAB PO BID for allergy symptoms for 5 Days, #10 TAB 0 Refills Prov: SHIRA ALMEIDA DO 09/30/20 SHIRA ALMEIDA DO Sep 30, 2020 02:23
== END 2020-09-30 02:31 | disposition home or self-care (01) ==
LOC: ER 01:54
DX: H01.004 Unspecified blepharitis left upper eyelid (principal); K21.9 Gastro-esophageal reflux disease without esophagitis; J45.909 Unspecified asthma, uncomplicated; Z91.041 Radiographic dye allergy status; Z91.040 Latex allergy status
CPT/HCPCS: 99282

== ENCOUNTER → 2020-10-03 | Outpatient (CLI) | payer BC ==
[2020-09-30 02:01] VITALS: BP 130/78
[~2020-10-03] MED LIST changes: +FEXO60TA25 PO
--- NOTE | 2020-10-03 16:58 | CARD ---
MR#: [id number] Date of Study: 10/03/2020 Ordering Physician: OLEG CLAY, Referring Physician: OLEG CLAY, Tech: Sindi Fallon [facility] APPROVED REPORT EXAM: Two-dimensional and M-mode echocardiogram with Doppler and color Doppler. Other Information Quality : GoodHR: 62bpm Rhythm : NSR INDICATION Cardiomyopathy. Hx: COVID+ elevated toponin with chest pain. 2D DIMENSIONS RVDd3.8 (2.9-3.5cm)IVSd0.9 (0.7-1.1cm) Aortic Root(2D)3.5 (2.0-3.7cm)LVDd5.3 (3.9-5.9cm) LVOT Diameter2.8 (1.8-2.4cm)PWd0.9 (0.7-1.1cm) LVDs3.2 (2.5-4.0cm)FS (%) 39.5 % SV95.5 mlLVEF(%)69.6 (>50%) Aortic Valve AoV Peak Miguel.122.4cm/[place]ha Peak GR.6.0mmHg LVOT Peak Miguel.96.7cm/sAVA (VMAX)5.02cm2 Mitral Valve MV E Iqhykrls40.6cm/sMV DECEL [id number] MV A Ogssvpyh68.2cm/sE/A Ratio2.3 MV A [id number] Pulmonary Valve PV Peak Bskdwlug35.5cm/s Tricuspid Valve RAP [id number] Pulmonary Vein S1 Uwpnnxsf82.0cm/sD2 Uhkufmes36.1cm/s LEFT VENTRICLE The left ventricle is normal size. There is normal left ventricular wall thickness. Left ventricle sy stolic function is normal. The Ejection Fraction is 55-60%. There is normal LV segmental wall motion. The left ventricular diastolic function and filling is normal for age. RIGHT VENTRICLE The right ventricle is normal size. The right ventricular systolic function is normal. ATRIA The left atrium size is normal. The right atrium size is normal. The interatrial septum is intact wit h no evidence for an atrial septal defect or patent foramen ovale as noted on 2-D or Doppler imaging. AORTIC VALVE The aortic valve is normal in structure and function. Doppler and Color Flow revealed no significant aortic regurgitation. There is no significant aortic valvular stenosis. MITRAL VALVE The mitral valve is normal in structure and function. There is no mitral valve stenosis. Doppler and Color Flow revealed no mitral valve regurgitation noted. TRICUSPID VALVE The tricuspid valve is normal in structure and function. Doppler and Color Flow revealed no tricuspid valve regurgitation noted. Unable to assess PA pressures. PULMONIC VALVE The pulmonary valve is normal in structure and function. Doppler and Color Flow revealed no pulmonic valvular regurgitation. GREAT VESSELS The aortic root is normal in size. The ascending aorta is normal in size. The IVC is normal in size a nd collapses >50% with inspiration. PERICARDIAL EFFUSION There is no evidence of significant pericardial effusion. Critical Notification Critical Value: No <Conclusion> Left ventricle systolic function is normal. The Ejection Fraction is 55-60%. There is normal LV segmental wall motion. There is no evidence of significant pericardial effusion. Signed by : Niko Lucia, Electronically Approved : 10/03/2020 16:57:41
== END ==
LOC: ECHO 13:48
PROVIDERS: ATTEND Internal Medicine Cardiovascular Disease
DX: I42.9 Cardiomyopathy, unspecified (principal); R79.89 Other specified abnormal findings of blood chemistry
CPT/HCPCS: 93306

== ENCOUNTER 2020-10-20 21:42 | Emergency (ER) | payer BC ==
[~2020-10-20] VITALS: Ht 190.5 cm; Wt 118.0 kg
[2020-10-20 22:12] VITALS: BP 135/90
--- NOTE | 2020-10-20 22:48 | PHYS DOC ---
Past Medical History Past Medical History: Anxiety, Asthma, GERD, Other Additional Past Medical Histor: ASBERGERS, eczema Past Surgical History: Other Additional Past Surgical Histo: rhinoplasty Smoking Status: Never Smoker Alcohol Use: Occasionally Drug Use: None General Adult EDM: Chief Complaint: ALLERGIC REACTION HPI: HPI: Patient is a 20 year old male who presents with allergic reactions. Patient reports he ate [employer] chicken nuggets with the development of hives and puffiness in the right neck/shoulder 20 minutes later. He quickly took 2 benadryl and had resolution of hives. He reports that he has continued upper torso itchiness. He denies tightening of his throat, SOA, or chest pain. He has had one previous allergic reaction in June to contrast when he was getting a CT scan. He had similar symptoms with the addition of puffy eyes. He was given steroids and an "IV allergy medication" with resolution of all symptoms. He denies starting any new medications, using new bath products/perfumes, or exposure to any new environmental agents today. Review of Systems: Review of Systems: Constitutional: Denies fever or chills Eyes: Denies redness or eye pain HENT: Denies nasal congestion or sore throat or tongue swelling Respiratory: Denies cough or shortness of breath Cardiovascular: Denies chest pain or palpitations GI: Denies abdominal pain, nausea, or vomiting : Denies dysuria or hematuria Musculoskeletal: Denies back pain or joint pain Integument: Denies skin lesions, reports rash and pruritis Neurologic: Denies focal weakness or sensory changes, reports headache Complete systems were reviewed and found to be within normal limits, except as documented in this note. Allergies: Allergies: Allergies Coded Allergies Type Severity Reaction Last Updated Verified Iodinated Contrast Media Allergy Severe Swelling 07/30/20 Yes latex Allergy Intermediate 07/30/20 Yes Physical Exam: PE: Constitutional: Well developed, well nourished, no acute distress, non-toxic appearance HENT: Normocephalic, atraumatic Eyes: Conjunctiva normal, no discharge Neck: Normal range of motion, no tenderness, supple, no stridor Lungs & Thorax: No respiratory distress, equal chest rise and fall Skin: Warm, dry, no erythema, no rash, self excoriations noted to right neck and upper forearms Extremities: No tenderness, ROM intact, no edema Neurologic: Alert and oriented X 3, no focal deficits noted Psychologic: Affect normal, judgment normal Current Patient Data: Vital Signs: Vital Signs Date Time Temp Pulse Resp B/P (MAP) Pulse Ox O2 Delivery O2 Flow Rate FiO2 10/20/20 22:12 97.8 82 12 135/90 (105) 97 Room Air 97.8 Course & Med Decision Making: Course & Med Decision Making Patient is a 20 year old male presenting with allergic reaction. Patient is at increased risk of continued allergic reaction with history of asthma and eczema. Dexamethasone provided in the ED. Prescription for prednisone provided for home. Advised to take over the counter benadryl as needed. Patient stable for discharge with outpatient follow-up with PCP. Discussed findings and plan with patient, who acknowledges understanding and agreement. Norberto Disclaimer: Norberto Disclaimer: This electronic medical record was generated, in whole or in part, using a voice recognition dictation system. Departure Departure Impression: Primary Impression: Urticaria Disposition: 01 DC HOME SELF CARE/HOMELESS Condition: STABLE Referrals: JEAN CLAUDE PABON APRN (PCP) Patient Instructions: Kp, [id number] Additional Instructions: Take steroid as prescribed. Use over the counter Benadryl as needed for further itching. Scripts Prednisone (PREDNISONE) 20 Mg Tablet 2 TAB PO DAILY, #8 TAB Start this prescription tomorrow, Thursday10/21/20 Prov: BRADLEY AGUAYO DO 10/20/20 BRADLEY AGUAYO DO Oct 20, 2020 22:47
[2020-10-20] MEDS ORDERED: PRED20TA PO (22:49)
[2020-10-20] MEDS ORDERED: DEXAMETHASONE 4 MG TABLET PO ONE (23:00)
== END 2020-10-20 22:59 | disposition home or self-care (01) ==
LOC: ER 21:42
DX: L50.0 Allergic urticaria (principal); R51.9 Headache, unspecified; R60.0 Localized edema; F41.9 Anxiety disorder, unspecified; J45.909 Unspecified asthma, uncomplicated; K21.9 Gastro-esophageal reflux disease without esophagitis; Z98.890 Other specified postprocedural states; Z91.040 Latex allergy status; Z91.041 Radiographic dye allergy status
CPT/HCPCS: 99283

== ENCOUNTER 2020-12-29 20:13 | Emergency (ER) | payer BC ==
[~2020-12-29] VITALS: Ht 180.3 cm; Wt 102.7 kg
[2020-12-29 21:00] VITALS: BP 137/79
--- NOTE | 2020-12-29 21:47 | ED.ADGEN ---
Past Medical History Past Medical History: Anxiety, Asthma, GERD, Other Additional Past Medical Histor: ASBERGERS, eczema Past Surgical History: Other Additional Past Surgical Histo: rhinoplasty Smoking Status: Never Smoker Alcohol Use: Occasionally Drug Use: None General Adult EDM: Chief Complaint: SWALLOWED FORIEGN BODY HPI: HPI: Patient is a 20 year old male who presents to the emergency department with complaints of throat discomfort after he felt like one of the Zithromax tablets that he took at about 4:00 this evening got stuck in his throat. Patient denies any vomiting, nausea, difficulty speaking, dysphagia, shortness of breath, whe ezing, stridor, or abdominal pain. Patient states that he was taking Zithromax for strep throat that was diagnosed by his primary care provider earlier this week. He currently rates his pain a 5 out of 10 on the pain scale describes it as burning irritation in the back of his throat. Review of Systems: Review of Systems: Complete ROS is negative unless otherwise noted in HPI. Allergies: Allergies: Allergies Coded Allergies Type Severity Reaction Last Updated Verified Iodinated Contrast Media Allergy Severe Swelling 07/30/20 Yes latex Allergy Intermediate 07/30/20 Yes Physical Exam: PE: See Above Constitutional: Well developed, well nourished, no acute distress, non-toxic appearance. [] HENT: Normocephalic, atraumatic, bilateral external ears normal, oropharynx moist, 1+ tonsils bilaterally with mild erythema posterior pharynx, nose normal. [] Eyes: PERRLA, EOMI, conjunctiva normal, no discharge. [] Neck: Normal range of motion, supple, nontender, no stridor. [] Cardiovascular:Heart rate regular rhythm Lungs & Thorax: Respirations even and unlabored, no retractions, no respiratory distress Skin: Warm, dry, no erythema, no rash. [] Extremities: No cyanosis, ROM intact, no edema. [] Neurologic: Alert and oriented X 3, no focal deficits noted. [] Psychologic: Affect normal, judgement normal, mood normal. [] EKG: EKG: [] Heart Score: Risk Factors: Risk Factors: DM, Current or recent (<one month) smoker, HTN, HLP, family hist ory of CAD, obesity. Risk Scores: Score 0 - 3: 2.5% MACE over next 6 weeks - Discharge Home Score 4 - 6: 20.3% MACE over next 6 weeks - Admit for Clinical Observation Score 7 - 10: 72.7% MACE over next 6 weeks - Early Invasive Strategies Radiology/Procedures: Radiology/Procedures: [] Course & Med Decision Making: Course & Med Decision Making Pertinent Labs and Imaging studies reviewed. (See chart for details) [] Dragon Disclaimer: Dragon Disclaimer: This electronic medical record was generated, in whole or in part, using a voice recognition dictation system. Departure Departure Impression: Primary Impression: Pill esophagitis Disposition: 01 DC HOME SELF CARE/HOMELESS Condition: STABLE Referrals: JEAN CLAUDE PABON APRN (PCP) Patient Instructions: Esophagitis Additional Instructions: Follow the instructions provided. Return to the ER if symptoms worsen. YANCY HAWKINS APRN Dec 29, 2020 21:47
== END 2020-12-29 21:35 | disposition home or self-care (01) ==
LOC: ER 20:13
DX: K20.80 Other esophagitis without bleeding (principal); K21.9 Gastro-esophageal reflux disease without esophagitis; J45.909 Unspecified asthma, uncomplicated; Z91.041 Radiographic dye allergy status; Z91.040 Latex allergy status
CPT/HCPCS: 99281

== ENCOUNTER 2021-01-14 11:47 | Emergency (ER) | payer BC ==
[~2021-01-14] VITALS: Ht 190.5 cm; Wt 136.4 kg
[2021-01-14] MEDS ORDERED: THIAMINE INJ 100 MG, FOLIC ACID INJ 1 MG in IV NORMAL SALINE 1000ML BAG 1,000 ML IV ONE (13:00)
[2021-01-14] MEDS ORDERED: ONDANSETRON PF 4 MG/2 ML VIAL. IVP ONE (13:00)
[2021-01-14] MEDS ORDERED: KETOROLAC 30 MG/ML VIAL. IVP ONE (13:00)
--- NOTE | 2021-01-14 13:25 | PHYS DOC ---
Past Medical History Past Medical History: Anxiety, Asthma, GERD, Other Additional Past Medical Histor: ASBERGERS, eczema Past Surgical History: Other Additional Past Surgical Histo: rhinoplasty Smoking Status: Never Smoker Alcohol Use: Occasionally Drug Use: None General Adult EDM: Chief Complaint: NAUSEA/VOMITING/DIARRHA HPI: HPI: Patient is a 20 year old male patient with history of anxiety, Asperger's syndrome, asthma, who presents to the ED today complaining of "alcohol intoxication". Patient states he had 6-7 beers yesterday and drank very fast and believes he got alcohol poisoning. He states he vomited once last night. He states he drinks frequently but not to this fast. Denies any reason to get help with alcohol. Review of Systems: Review of Systems: Constitutional: Denies fever or chills. [] Eyes: Denies change in visual acuity. [] HENT: Denies nasal congestion or sore throat. [] Respiratory: Denies cough or shortness of breath. [] Cardiovascular: Denies chest pain or edema. [] GI: Reports vomiting after drinking alcohol. Denies abdominal pain,bloody stools or diarrhea. [] : Denies dysuria. [] Musculoskeletal: Denies back pain or joint pain. [] Integument: Denies rash. [] Neurologic: Denies headache, focal weakness or sensory changes. [] Psychiatric: Reports alcohol use Heart Score: Risk Factors: Risk Factors: DM, Current or recent (<one month) smoker, HTN, HLP, family history of CAD, obesity. Risk Scores: Score 0 - 3: 2.5% MACE over next 6 weeks - Discharge Home Score 4 - 6: 20.3% MACE over next 6 weeks - Admit for Clinical Observation Score 7 - 10: 72.7% MACE over next 6 weeks - Early Invasive Strategies Current Medications: Current Medications Medications (Trade) Dose Ordered Sig/[place] Start Time Stop Time Status Last Admin Dose Admin Ketorolac Tromethamine (Toradol 30mg Vial) 30 mg 1X ONCE 01/14/21 13:00 01/14/21 13:01 DC Ondansetron HCl (Zofran) 4 mg 1X ONCE 01/14/21 13:00 01/14/21 13:01 DC Thiamine HCl 100 mg/Folic Acid 1 mg/Sodium Chloride 1,001.2 ml @ 990.198 mls/hr 1X ONCE 01/14/21 13:00 01/14/21 14:00 Allergies: Allergies: Allergies Coded Allergies Type Severity Reaction Last Updated Verified Iodinated Contrast Media Allergy Severe Swelling 07/30/20 Yes latex Allergy Intermediate 07/30/20 Yes Physical Exam: PE: Constitutional: Well developed, well nourished, no acute distress, non-toxic appearance. [] HENT: Normocephalic, atraumatic, bilateral external ears normal, oropharynx moist, no oral exudates, nose normal. [] Eyes: PERRLA, EOMI, conjunctiva normal, no discharge. [] Neck: Normal range of motion, no tenderness, supple, no stridor. [] Cardiovascular:Heart rate regular rhythm, no murmur [] Lungs & Thorax: Bilateral breath sounds clear to auscultation [] Abdomen: Bowel sounds normal, soft, no tenderness, no masses, no pulsatile masses. [] Skin: Warm, dry, no erythema, no rash. [] Back: No tenderness, no CVA tenderness. [] Extremities: No tenderness, no cyanosis, no clubbing, ROM intact, no edema. [] Neurologic: Alert and oriented X 3, normal motor function, normal sensory function, no focal deficits noted. [] Psychologic: Affect normal, judgement normal, mood normal. [] Current Patient Data: Vital Signs: Vital Signs Date Time Temp Pulse Resp B/P (MAP) Pulse Ox O2 Delivery O2 Flow Rate FiO2 01/14/21 12:15 98.1 90 16 162/105 (124) 96 Room Air 98.1 EKG: EKG: [] Radiology/Procedures: Radiology/Procedures: [] Course & Med Decision Making: Course & Med Decision Making Pertinent Labs and Imaging studies reviewed. (See chart for details) This is a 20-year-old male patient presented to the ED today concerned he has alcohol poisoning after drinking 6-7 beers last night. He believes that he drank too fast. He vomited once last night. He is refusing any help with alcohol use. CBC, CMP, lipase with no acute findings. Alcohol level less than 10. Patient was given a banana bag Zofran and Toradol. Feeling better. Discharge to home. Provided return precautions. Norberto Disclaimer: Norberto Disclaimer: This electronic medical record was generated, in whole or in part, using a voice recognition dictation system. Departure Departure Impression: Primary Impression: ETOHism Disposition: 01 DC HOME SELF CARE/HOMELESS Condition: STABLE Referrals: JEAN CLAUDE PABON APRN (PCP) Follow-up in 1 to 2 weeks Patient Instructions: Alcohol Intoxication, [id number] Additional Instructions: Your evaluated in the emergency room for alcohol abuse. Consider getting help if you feel you need. Avoid drinking too fast and too much. Hydrate yourself anytime before, during and after drinking alcohol. Follow-up with your doctor in 1 to 2 weeks NICCI NATH APRN Jan 14, 2021 13:24
[2021-01-14 13:59] LABS: BASO # 0.1 x10^3/uL (0.0-0.2); BASO % 1 % (0-3); EOS # 0.1 x10^3/uL (0.0-0.7); EOS % 1 % (0-3); HEMATOCRIT 48.2 % (39.0-53.0); HEMOGLOBIN 16.5 g/dL (13.0-17.5); LYMPH % 18 % (24-48); MEAN CORPUSCULAR HEMOGLOBIN 29 pg (25-35); MEAN CORPUSCULAR HGB CONC 34 g/dL (31-37); MEAN CORPUSCULAR VOLUME 85 fL (79-100); MONO # 0.6 x10^3/uL (0.0-1.1); MONO % 5 % (0-9); NEUT # 8.2 x10^3/uL (1.8-7.7); NEUT % 75 % (31-73); PLATELET COUNT 277 x10^3/uL (140-400); RED CELL DISTRIBUTION WIDTH 13.6 % (11.5-14.5); WHITE BLOOD COUNT 10.9 x10^3/uL (4.0-11.0)
[2021-01-14 14:07] LABS: CALCIUM 9.3 mg/dL (8.5-10.1); CREATININE 1.1 mg/dL (0.7-1.3); GFR 83.7; POTASSIUM 3.5 mmol/L (3.5-5.1)
[2021-01-14 14:11] LABS: ETHANOL < 10 mg/dL (0-10); SALIC < 2.8 mg/dL (2.8-20.0)
[2021-01-14 14:12] LABS: ACETAMIN < 2 mcg/ml (10-30)
[2021-01-14 14:13] LABS: ALBUMIN 4.3 g/dL (3.4-5.0); ALBUMIN/GLOBULIN RATIO 1.1 (1.0-1.7); TOTAL BILIRUBIN 0.6 mg/dL (0.2-1.0); TOTAL PROTEIN 8.2 g/dL (6.4-8.2)
[2021-01-14 15:22] VITALS: BP 147/82
[2021-01-14 15:22] LABS: BILIRUBIN,URINE NEGATIVE (NEG); CLARITY,URINE CLEAR; COLOR,URINE YELLOW; NITRITE,URINE NEGATIVE (NEG); PH,URINE 7.5 (<5.0-8.0); PROTEIN,URINE NEGATIVE (NEG-TRACE); UROBILINOGEN,URINE 0.2 mg/dL (0.2 mg/dL)
[2021-01-14 15:26] LABS: AMPHETAMINE/METHAMPHETAMINE NEG (NEG); BARBITURATES NEG (NEG); BENZODIAZEPINES NEG (NEG); CANNABINOIDS NEG (NEG); COCAINE NEG (NEG); METHADONE NEG (NEG); OPIATES NEG (NEG); PHENCYCLIDINE NEG (NEG)
[2021-01-14 15:40] LABS: WBC,URINE OCC /HPF (0-4)
[2021-01-14 15:42] LABS: AMORPHOUS SEDIMENT,UR PRESENT /HPF; BACTERIA,URINE FEW /HPF (0-FEW)
== END 2021-01-14 16:07 | disposition home or self-care (01) ==
LOC: ER 11:47
DX: F10.229 Alcohol dependence with intoxication, unspecified (principal); R11.2 Nausea with vomiting, unspecified; F41.9 Anxiety disorder, unspecified; J45.909 Unspecified asthma, uncomplicated; K21.9 Gastro-esophageal reflux disease without esophagitis; Z90.89 Acquired absence of other organs; Z98.890 Other specified postprocedural states; Z91.040 Latex allergy status; Z91.041 Radiographic dye allergy status
CPT/HCPCS: 36415; 80053; 80307; 80329; 81001; 83690; 85025; 96365; 96375; 99285; G0480; J1885; J2405; J3411; J3490; J7030

== ENCOUNTER 2021-02-07 17:03 | Emergency (ER) | payer BC ==
[~2021-02-07] VITALS: Ht 190.5 cm; Wt 136.6 kg
[2021-02-07] MEDS ORDERED: FAMOTIDINE 20 MG TABLET. PO ONE (17:45)
[2021-02-07] MEDS ORDERED: predniSONE 20 MG TABLET PO ONE (17:45)
[2021-02-07] MEDS ORDERED: diphenhydrAMINE HCL 25 MG CAPSULE PO ONE (17:45)
--- NOTE | 2021-02-07 18:26 | PHYS DOC ---
Past Medical History Past Medical History: Anxiety, Asthma, GERD, Other Additional Past Medical Histor: ASBERGERS, eczema Past Surgical History: Other Additional Past Surgical Histo: rhinoplasty Smoking Status: Never Smoker Alcohol Use: Occasionally Drug Use: None General Adult EDM: Chief Complaint: ALLERGIC REACTION HPI: HPI: Patient is a 20 year old male with a history of anxiety, asthma, who presents to the ED today concerned he is having an allergic reaction to his dog. Patient said he was playing with his own dog which she has had since October and developed a sore throat, chest tightness and felt he is having trouble swallowing. Review of Systems: Review of Systems: Constitutional: Denies fever or chills. [] Eyes: Denies change in visual acuity. [] HENT: Reports sore throat, difficulty swallowing, denies nasal congestion Respiratory: Denies cough or shortness of breath. [] Cardiovascular: Reports chest tightness GI: Denies abdominal pain, nausea, vomiting, bloody stools or diarrhea. [] : Denies dysuria. [] Musculoskeletal: Denies back pain or joint pain. [] Integument: Denies rash. [] Neurologic: Denies headache, focal weakness or sensory changes. [] Psychiatric: Denies depression or anxiety. [] Heart Score: C/O Chest Pain: N/A Risk Factors: Risk Factors: DM, Current or recent (<one month) smoker, HTN, HLP, family history of CAD, obesity. Risk Scores: Score 0 - 3: 2.5% MACE over next 6 weeks - Discharge Home Score 4 - 6: 20.3% MACE over next 6 weeks - Admit for Clinical Observation Score 7 - 10: 72.7% MACE over next 6 weeks - Early Invasive Strategies Current Medications: Current Medications Medications (Trade) Dose Ordered Sig/[place] Start Time Stop Time Status Last Admin Dose Admin Diphenhydramine HCl (Benadryl) 25 mg 1X ONCE 02/07/21 17:45 02/07/21 17:46 DC 02/07/21 17:56 25 MG Famotidine (Pepcid) 20 mg 1X ONCE 02/07/21 17:45 02/07/21 17:46 DC 02/07/21 17:56 20 MG Prednisone (Prednisone) 60 mg 1X ONCE 02/07/21 17:45 02/07/21 17:46 DC 02/07/21 17:56 60 MG Allergies: Allergies: Allergies Coded Allergies Type Severity Reaction Last Updated Verified Iodinated Contrast Media Allergy Severe Swelling 07/30/20 Yes latex Allergy Intermediate 07/30/20 Yes Physical Exam: PE: Constitutional: Well developed, well nourished, no acute distress, non-toxic appearance. [] HENT: Normocephalic, atraumatic, bilateral external ears normal, oropharynx moist, no oral exudates, nose normal. [] Airways open, midline uvula. Eyes: PERRLA, EOMI, conjunctiva normal, no discharge. [] Neck: Normal range of motion, no tenderness, supple, no stridor. [] Cardiovascular:Heart rate regular rhythm, no murmur [] Lungs & Thorax: Bilateral breath sounds clear to auscultation [] Abdomen: Bowel sounds normal, soft, no tenderness, no masses, no pulsatile m asses. [] Skin: Warm, dry, no erythema, no rash. [] Back: No tenderness, no CVA tenderness. [] Extremities: No tenderness, no cyanosis, no clubbing, ROM intact, no edema. [] Neurologic: Alert and oriented X 3, normal motor function, normal sensory function, no focal deficits noted. [] Psychologic: Affect normal, judgement normal, mood normal. [] Current Patient Data: Vital Signs: Vital Signs Date Time Temp Pulse Resp B/P (MAP) Pulse Ox O2 Delivery O2 Flow Rate FiO2 02/07/21 17:16 97.5 102 18 126/75 (92) 98 Room Air 97.5 EKG: EKG: [] Radiology/Procedures: Radiology/Procedures: [] Course & Med Decision Making: Course & Med Decision Making Pertinent Labs and Imaging studies reviewed. (See chart for details) This is a 20-year-old male patient presenting to the ED today complaining of allergic reaction to his dog which he has had since October. He states he was playing with it today and developed a sore throat, chest tightness and felt he could not swallow. On arrival to the ED vitals are stable, airway is open. Patient was given prednisone Benadryl and Pepcid and discharged to home with the same. Dragon Disclaimer: Dragon Disclaimer: This electronic medical record was generated, in whole or in part, using a voice recognition dictation system. Departure Departure Impression: Primary Impression: Allergic reaction Qualified Codes: T78.40XA - Allergy, unspecified, initial encounter Disposition: HOME SELF CARE/HOMELESS Condition: STABLE Referrals: JEAN CLAUDE PABON APRN (PCP) follow up in 1 week Patient Instructions: Allergies, Generic Additional Instructions: You were seen for an allergic reaction to your dog. Take the prescribed medications as ordered. Follow-up with your doctor in 1 week Scripts Famotidine (ACID CONTROLLER) 20 Mg Tablet 20 MG PO Q6HRS, #20 TAB Prov: NICCI NATH APRN 02/07/21 Diphenhydramine Hcl (BENADRYL) 25 Mg Capsule 1 CAP PO Q6HRS, #30 CAP 0 Refills Prov: NICCI NATH APRN 02/07/21 Prednisone (PREDNISONE) 50 Mg Tablet 1 TAB PO DAILY, #5 TAB Prov: NICCI NATH APRN 02/07/21 NICCI NATH APRN Feb 07, 2021 18:26
[2021-02-07] MEDS ORDERED: FAMO-54 PO (18:49)
[2021-02-07] MEDS ORDERED: PRED50TA PO (18:49)
[2021-02-07] MEDS ORDERED: DIPH25CA58 PO (18:49)
[2021-02-07 19:19] VITALS: BP 142/75
== END 2021-02-07 19:25 | disposition home or self-care (01) ==
LOC: ER 17:03
DX: T78.40XA Allergy, unspecified, initial encounter (principal); K21.9 Gastro-esophageal reflux disease without esophagitis; J45.909 Unspecified asthma, uncomplicated; Z91.040 Latex allergy status; Z91.041 Radiographic dye allergy status
CPT/HCPCS: 99285; J7512; Q0163

== ENCOUNTER 2021-02-15 18:37 | Emergency (ER) | payer BC ==
[~2021-02-15] VITALS: Ht 190.5 cm; Wt 140.9 kg
[~2021-02-15 18:37] MED LIST changes: +DIPH25CA58 PO; +FAMO-54 PO; +PRED50TA PO
--- NOTE | 2021-02-15 19:35 | RAD ---
Chest AP portable at 1907: Reason for examination: Chest pain. Comparison is made to previous study dated 09/04/2020. The heart size is normal. Mediastinum is unremarkable. Lung bryan are clear. No acute bony abnormali ties are seen. Impression: No acute cardiopulmonary disease. Electronically signed by: Abena Aguilar MD (02/15/2021 7:33 PM) SANTANA
[2021-02-15 19:40] LABS: BASO # 0.1 x10^3/uL (0.0-0.2); BASO % 1 % (0-3); EOS # 0.3 x10^3/uL (0.0-0.7); EOS % 3 % (0-3); HEMATOCRIT 43.5 % (39.0-53.0); HEMOGLOBIN 14.8 g/dL (13.0-17.5); LYMPH # 3.4 x10^3/uL (1.0-4.8); LYMPH % 31 % (24-48); MEAN CORPUSCULAR HEMOGLOBIN 29 pg (25-35); MEAN CORPUSCULAR HGB CONC 34 g/dL (31-37); MEAN CORPUSCULAR VOLUME 85 fL (79-100); MONO % 9 % (0-9); NEUT # 6.2 x10^3/uL (1.8-7.7); NEUT % 57 % (31-73); PLATELET COUNT 296 x10^3/uL (140-400); RED BLOOD COUNT 5.13 x10^6/uL (4.30-5.70); RED CELL DISTRIBUTION WIDTH 13.7 % (11.5-14.5); WHITE BLOOD COUNT 10.9 x10^3/uL (4.0-11.0)
--- NOTE | 2021-02-15 19:50 | ED.ADGEN ---
Past Medical History Past Medical History: Anxiety, Asthma, GERD, Other Additional Past Medical Histor: ASBERGERS, eczema Past Surgical History: Other Additional Past Surgical Histo: rhinoplasty Smoking Status: Never Smoker Alcohol Use: Occasionally Drug Use: None General Adult EDM: Chief Complaint: SHORTNESS OF BREATH HPI: HPI: Patient is a 20 year old male, who is well-known to the emergency department that presents for complaints of intermittent chest pain with palpitations for the last week. Patient states that he feels short of breath with the chest pain and nauseated. Patient states over the last 2 days the chest pain and palpitations has worsened and become more frequent. He denies any diaphoresis, back pain, body aches, fever, fatigue, vomiting, diarrhea, abdominal pain, dysuria, hematuria, increased urinary frequency, or rash. The patient denies any syncope or dizziness. He currently rates the pain in the left side of his chest a 6 out of 10 on the pain scale he denies any alleviating or exacerbating factors. Patient denies any illicit drug use, smoking, or alcohol use. Review of Systems: Review of Systems: Complete ROS is negative unless otherwise noted in HPI. Allergies: Allergies: Allergies Coded Allergies Type Severity Reaction Last Updated Verified Iodinated Contrast Media Allergy Severe Swelling 07/30/20 Yes latex Allergy Intermediate 07/30/20 Yes Physical Exam: PE: See Above Constitutional: Well developed, well nourished, no acute distress, non-toxic appearance, obese, anxious. [] HENT: Normocephalic, atraumatic, bilateral external ears normal, nose normal. [] Eyes: PERRLA, EOMI, conjunctiva normal, no discharge. [] Neck: Normal range of motion, no stridor. [] Cardiovascular:Heart rate regular rhythm, no murmur Lungs & Thorax: Respirations even and unlabored, no retractions, no respiratory distress, lungs CTA Abdomen: soft, no tenderness, no palpable mass, no guarding, no pulsatile mass Skin: Warm, dry, no erythema, no rash. [] Extremities: No cyanosis, ROM intact, no edema. [] Neurologic: Alert and oriented X 3, normal motor, normal sensory, no focal deficits noted. [] Psychologic: Affect normal, judgement normal, mood anxious. Current Patient Data: Labs: Laboratory Tests Test 02/15/21 19:28 02/15/21 21:00 White Blood Count 10.9 x10^3/uL (4.0-11.0) Red Blood Count 5.13 x10^6/uL (4.30-5.70) Hemoglobin 14.8 g/dL (13.0-17.5) Hematocrit 43.5 % (39.0-53.0) Mean Corpuscular Volume 85 fL (79-100) Mean Corpuscular Hemoglobin 29 pg (25-35) Mean Corpuscular Hemoglobin Concent 34 g/dL (31-37) Red Cell Distribution Width 13.7 % (11.5-14.5) Platelet Count 296 x10^3/uL (140-400) Neutrophils (%) (Auto) 57 % (31-73) Lymphocytes (%) (Auto) 31 % (24-48) Monocytes (%) (Auto) 9 % (0-9) Eosinophils (%) (Auto) 3 % (0-3) Basophils (%) (Auto) 1 % (0-3) Neutrophils # (Auto) 6.2 x10^3/uL (1.8-7.7) Lymphocytes # (Auto) 3.4 x10^3/uL (1.0-4.8) Monocytes # (Auto) 1.0 x10^3/uL (0.0-1.1) Eosinophils # (Auto) 0.3 x10^3/uL (0.0-0.7) Basophils # (Auto) 0.1 x10^3/uL (0.0-0.2) D-Dimer ([place]) < 0.27 ug/mlFEU Sodium Level 142 mmol/L (136-145) Potassium Level 4.0 mmol/L (3.5-5.1) Chloride Level 103 mmol/L (98-107) Carbon Dioxide Level 29 mmol/L (21-32) Anion Gap 10 (6-14) Blood Urea Nitrogen 15 mg/dL (8-26) Creatinine 1.1 mg/dL (0.7-1.3) Estimated GFR (Cockcroft-Gault) 83.7 BUN/Creatinine Ratio 14 (6-20) Glucose Level 85 mg/dL (70-99) Calcium Level 9.3 mg/dL (8.5-10.1) Magnesium Level 1.9 mg/dL (1.8-2.4) Total Bilirubin 0.4 mg/dL (0.2-1.0) Aspartate Amino Transferase (AST) 17 U/L (15-37) Alanine Aminotransferase (ALT) 36 U/L (16-63) Alkaline Phosphatase 74 U/L (46-116) Creatine Kinase 160 U/L (39-308) Creatine Kinase MB (Mass) 1.3 ng/mL (0.0-3.6) Creatine Kinase MB Relative Index 0.8 % (0-4) Troponin I Quantitative < 0.017 ng/mL (0.000-0.055) Total Protein 7.6 g/dL (6.4-8.2) Albumin 4.0 g/dL (3.4-5.0) Albumin/Globulin Ratio 1.1 (1.0-1.7) Lipase 78 U/L (73-393) Urine Collection Type Void Urine Color Yellow Urine Clarity Clear Urine pH 5.5 (<5.0-8.0) Urine Specific [place] 1.010 (1.000-1.030) Urine Protein Negative mg/dL (NEG-TRACE) Urine Glucose (UA) Negative mg/dL (NEG) Urine Ketones (Stick) Negative mg/dL (NEG) Urine Blood Negative (NEG) Urine Nitrite Negative (NEG) Urine Bilirubin Negative (NEG) Urine Urobilinogen Dipstick 0.2 mg/dL (0.2 mg/dL) Urine Leukocyte Esterase Negative (NEG) Urine RBC 0 /HPF (0-2) Urine WBC 0 /HPF (0-4) Urine Squamous Epithelial Cells Occ /LPF Urine Bacteria 0 /HPF (0-FEW) Laboratory Tests 02/15/21 19:28 Laboratory Tests 02/15/21 19:28 Vital Signs: Vital Signs Date Time Temp Pulse Resp B/P (MAP) Pulse Ox O2 Delivery O2 Flow Rate FiO2 02/15/21 18:48 97.2 77 20 128/67 (87) 96 Room Air 97.2 EKG: EK-sinus rhythm, rate 64, no STEMI, read by Dr. Villagomez [] Heart Score: C/O Chest Pain: Yes HEART Score for Chest Pain: HEART Score for Chest Pain Response (Comments) Value History Slighlty/Non-Suspicious 0 ECG Normal 0 Age < 45 0 Risk Factors 1 or 2 Risk Factors 1 Troponin < Normal Limit 0 Total 1 Risk Factors: Risk Factors: DM, Current or recent (<one month) smoker, HTN, HLP, family history of CAD, obesity. Risk Scores: Score 0 - 3: 2.5% MACE over next 6 weeks - Discharge Home Score 4 - 6: 20.3% MACE over next 6 weeks - Admit for Clinical Observation Score 7 - 10: 72.7% MACE over next 6 weeks - Early Invasive Strategies Radiology/Procedures: Radiology/Procedures: PROCEDURE: CHEST AP ONLY Chest AP portable at 1907: Reason for examination: Chest pain. Comparison is made to previous study dated 09/04/2020. The heart size is normal. Mediastinum is unremarkable. Lung bryan are clear. No acute bony abnormalities are seen. Impression: No acute cardiopulmonary disease. Electronically signed by: Abena Aguilar MD (02/15/2021 7:33 PM) SANTANA[] Course & Med Decision Making: Course & Med Decision Making Pertinent Labs and Imaging studies reviewed. (See chart for details) 20-year-old male presents emergency department with intermittent chest pain for a week. EKG revealed no acute findings. CBC was unremarkable, CMP was unremarkable, cardiac enzymes were not elevated, UA was also negative. Chest x-ray revealed no acute process. I discussed these results with the patient I advised him that he is having atypical chest pain, likely due to anxiety. Vital signs are stable throughout the emergency department stay. The patient did have an occasional PVC on the monitor but otherwise his rhythm is normal. I encouraged him to follow-up with his primary care doctor for further evaluation perhaps he may need a Holter monitor. I encouraged him to limit caffeine, avoid alcohol and energy drinks. Return to the ER if symptoms worsened or fever develop. Patient verbalized an understanding of home care, medications, follow-up, and return to ED instructions and was in agreement with the plan of care. [] Dragon Disclaimer: Dragon Disclaimer: This electronic medical record was generated, in whole or in part, using a voice recognition dictation system. Departure Departure Impression: Primary Impression: Chest pain Additional Impression: Anxiety Disposition: 01 DC HOME SELF CARE/HOMELESS Condition: STABLE Referrals: JEAN CLAUDE PABON APRN (PCP) Patient Instructions: Anxiety and Panic Attacks, [id number], Chest Pain (Nonspecific), [id number] Additional Instructions: You may take Tylenol or ibuprofen as needed for pain. Follow-up with your primary care doctor for further evaluation on Thursday. Return to the ER if your symptoms worsen or fever develops Problem Qualifiers Primary Impression: Chest pain Chest pain type: unspecified Qualified Codes: R07.9 - Chest pain, unspecified YANCY HAWKINS TAPE DECK INSTALLER Feb 15, 2021 19:50
[2021-02-15 19:51] LABS: CALCIUM 9.3 mg/dL (8.5-10.1); CREATININE 1.1 mg/dL (0.7-1.3); GFR 83.7
[2021-02-15 19:57] LABS: ALBUMIN/GLOBULIN RATIO 1.1 (1.0-1.7); MAGNESIUM 1.9 mg/dL (1.8-2.4); TOTAL BILIRUBIN 0.4 mg/dL (0.2-1.0); TOTAL PROTEIN 7.6 g/dL (6.4-8.2)
--- NOTE | 2021-02-15 20:43 | EKG ---
[facility] [address] [place] [address] Test Date: 2021-02-15 Test Time: 18:55:52 Pat Name: ARINA DELVALLE Department: Room: Gender: M [employer]: : 2000 Requested By: YANCY HAWKINS Order Number: [id number] Reading MD: Measurements Intervals [place] Rate: 64 P: 0 W[place]: 130 QRS: 47 QRSD: 94 T: 30 QT: 390 QTc: 402 Interpretive Statements SINUS RHYTHM NORMAL ECG RI6.02 No previous ECG available for comparison
[2021-02-15 21:15] VITALS: BP 151/76
[2021-02-15 21:20] LABS: BILIRUBIN,URINE NEGATIVE (NEG); CLARITY,URINE CLEAR; COLOR,URINE YELLOW; NITRITE,URINE NEGATIVE (NEG); PH,URINE 5.5 (<5.0-8.0); PROTEIN,URINE NEGATIVE (NEG-TRACE); UROBILINOGEN,URINE 0.2 mg/dL (0.2 mg/dL)
[2021-02-15 21:29] LABS: BACTERIA,URINE 0 /HPF (0-FEW); RBC,URINE 0 /HPF (0-2); WBC,URINE 0 /HPF (0-4)
== END 2021-02-15 21:50 | disposition home or self-care (01) ==
LOC: ER 18:37
DX: R07.89 Other chest pain (principal); F41.9 Anxiety disorder, unspecified; K21.9 Gastro-esophageal reflux disease without esophagitis; J45.909 Unspecified asthma, uncomplicated; Z91.041 Radiographic dye allergy status; Z91.040 Latex allergy status
CPT/HCPCS: 36415; 71045; 80053; 81001; 82553; 83690; 83735; 84484; 85025; 85379; 93005; 99285-25

== ENCOUNTER → 2021-03-15 | Outpatient (CLI) | payer BC ==
[2021-02-15 21:15] VITALS: BP 151/76
--- NOTE | 2021-03-15 14:22 | KCIC ---
EXAM: Right ankle, 3 views. HISTORY: Pain. COMPARISON: None. FINDINGS: 3 views of the right ankle are obtained. There is no fracture, dislocation or subluxation. The ankle mortise intact. There is no osteochondral lesion. IMPRESSION: No acute osseous finding. Electronically signed by: Sara Thurman MD (03/15/2021 2:20 PM) [id number]
== END ==
LOC: KCIC 14:02
PROVIDERS: ATTEND Nurse Practitioner Family
DX: M25.571 Pain in right ankle and joints of right foot (principal)
CPT/HCPCS: 73610